=== PATIENT | female | born 1960 | race Hispanic/Latino ===

== ENCOUNTER 2016-12-29 18:49 | Emergency (ER) | payer OTHER ==
[2016-12-29 18:49] VITALS: BMI 27.3
== END 2016-12-29 19:54 | disposition left against medical advice (07) ==
LOC: ED 18:49
DX: Z02.89 Encounter for other administrative examinations (principal); R52 Pain, unspecified

== ENCOUNTER 2017-01-29 16:21 | Emergency (ER) | payer OTHER ==
[2017-01-29 16:38] VITALS: BMI 27.6
[2017-01-29 16:40] VITALS: BP 128/87; PULSE 99; TEMP 98.5
--- NOTE | 2017-01-29 16:54 | ED PDOC ---
Arrival/HPI - General Chief Complaint: Lower Extremity Problem/Injury Time Seen by Provider: 01/29/17 16:38 Historian: Patient - History of Present Illness Narrative History of Present Illness (Text): 01/29/17 16:50 56yo female present with complaint of right knee pain x 4months. States she have not seen a Doctor for the pain. Pain is usually worse at night. She denies trauma, calf pain, SOB, chest pain, any other complaint. Past Medical History - Provider Review Nursing Documentation Reviewed: Yes - Infectious Disease Hx of Infectious Diseases: None - Tetanus Immunization Tetanus Immunization: Unknown - Past Medical History Past Medical History: No Previous - Cardiac Hx Cardiac Disorders: No - Pulmonary Hx Respiratory Disorders: No - Neurological Hx Neurological Disorder: No - HEENT Hx HEENT Disorder: No - Renal Hx Renal Disorder: No - Endocrine/Metabolic Hx Diabetes Mellitus Type 2: Yes (NIDD) - Hematological/Oncological Hx Blood Disorders: No - Integumentary Hx Dermatological Disorder: No - Musculoskeletal/Rheumatological Hx Musculoskeletal Disorders: No - Gastrointestinal Hx Gastrointestinal Disorders: No - Genitourinary/Gynecological Hx Genitourinary Disorders: No - Psychiatric Hx Depression: No Hx Emotional Abuse: No Hx Physical Abuse: No Hx Substance Use: No - Surgical History Hx Cholecystectomy: Yes Hx Hysterectomy: Yes Hx Orthopedic Surgery: Yes (jaime foot surgery; left knee surgery) Other/Comment: HYSTERECTOMY 1997 - Anesthesia Hx Anesthesia: No Hx Anesthesia Reactions: No Hx Malignant Hyperthermia: No - Suicidal Assessment Feels Threatened In Home Enviroment: No Family/Social History - Physician Review Nursing Documentation Reviewed: Yes Family/Social History: Unknown Family HX Smoking Status: Light Smoker < 10 Cigarettes Daily Hx Alcohol Use: No Hx Substance Use: No Hx Substance Use Treatment: No Allergies/Home Meds Allergies/Adverse Reactions: Allergies No Known Allergies Allergy (Verified 01/29/17 16:38) per patient Review of Systems - Physician Review All systems were reviewed & negative as marked: Yes - Review of Systems Constitutional: Normal Eyes: Normal ENT: Normal Respiratory: Normal Cardiovascular: Normal Gastrointestinal: Normal Genitourinary Female: Normal Musculoskeletal: Arthralgias (Right knee pain) Skin: Normal Neurological: Normal Endocrine: Normal Hemo/Lymphatic: Normal Psychiatric: Normal Physical Exam Vital Signs Reviewed: Yes Vital Signs Temp Pulse Resp BP Pulse Ox 01/29/17 16:39 98.5 F 99 H 17 128/87 97 Temperature: Afebrile Blood Pressure: Normal Pulse: Regular Respiratory Rate: Normal Appearance: Positive for: Well-Appearing, Non-Toxic, Comfortable Pain Distress: None Mental Status: Positive for: Alert and Oriented X 3 - Systems Exam Head: Present: Atraumatic, Normocephalic Pupils: Present: PERRL Extroacular Muscles: Present: EOMI Conjunctiva: Present: Normal Mouth: Present: Moist Mucous Membranes Neck: Present: Normal Range of Motion Respiratory/Chest: Present: Clear to Auscultation, Good Air Exchange. No: Respiratory Distress, Accessory Muscle Use Cardiovascular: Present: Regular Rate and Rhythm, Normal S1, S2. No: Murmurs Abdomen: Present: Normal Bowel Sounds. No: Tenderness, Distention, Peritoneal Signs Back: Present: Normal Inspection Upper Extremity: Present: Normal Inspection. No: Cyanosis, Edema Lower Extremity: Present: NORMAL PULSES, Normal ROM, Tenderness (Over inferior right knee and posterior knee), Neurovascularly Intact. No: Edema, CALF TENDERNESS, Saba's Sign, Swelling, Erythema, Deformity, Temperature Abnormalties Neurological: Present: GCS=15, CN II-XII Intact, Speech Normal Skin: Present: Warm, Dry, Normal Color. No: Rashes Psychiatric: Present: Alert, Oriented x 3, Normal Insight, Normal Concentration Medical Decision Making ED Course and Treatment: 01/29/17 17:48 Right knee xray - Moderate effusion. No acute finding Right Doppler US - Negative DVT Result was DW the pt. Clint wrap applied. Advised to keep knee elevated. Referred to ortho. - RAD Interpretation Radiology Orders: 01/29/17 16:49 KNEE W PATELLA RIGHT 3 VIEW [RAD] Stat DUPLEX LOWER EXTRM VEIN RIGHT [US] Stat - Medication Orders Current Medication Orders: Discontinued Medications Ketorolac Tromethamine (Toradol) 60 mg IM STAT STA Stop: 01/29/17 16:51 Last Admin: 01/29/17 17:40 Dose: 60 mg Disposition/Present on Arrival - Present on Arrival Any Indicators Present on Arrival: No History of DVT/PE: No History of Uncontrolled Diabetes: No Urinary Catheter: No History of Decub. Ulcer: No History Surgical Site Infection Following: Orthopedic Procedures - Disposition Have Diagnosis and Disposition been Completed?: Yes Diagnosis: Knee pain Disposition: HOME/ ROUTINE Disposition Time: 18:40 Patient Plan: Discharge Condition: STABLE Discharge Instructions (ExitCare): Knee Pain (ED) Additional Instructions: Follow up with orthopedist Return to ED for any new symptoms Prescriptions: Naproxen [Naprosyn] 500 mg PO BID #20 tab Referrals: [facility] [Primary Care Provider] - Follow up with primary [facility] [place] [Outside] - Follow up with primary
--- NOTE | 2017-01-29 17:44 | RAD ---
PROCEDURE: Right Knee Radiographs. HISTORY: Pain. No history of recent/ related trauma provided COMPARISON: None. FINDINGS: BONES: No acute fracture. JOINTS: Normal. No osteoarthritis. JOINT EFFUSION: Suprapatellar joint effusion. OTHER FINDINGS: None. IMPRESSION: No acute osseous findings. Moderate suprapatellar joint effusion.
--- NOTE | 2017-01-29 18:29 | US ---
PROCEDURE: Right lower extremity venous US HISTORY: Leg pain and swelling. Evaluate for DVT. PHYSICIAN(S): Tam Qureshi M.D. TECHNIQUE: Duplex sonography and color-flow Doppler with graded compression were used to evaluate the deep venous system of the right lower extremity. FINDINGS: The visualized deep venous system of the right lower extremity is sonographically normal and compressible. Normal waveforms and augmentation are seen. There is no sonographic evidence for deep venous thrombosis in the visualized segments of the right lower extremity. IMPRESSION: 1. No sonographic evidence for deep venous thrombosis in the visualized segments of the right lower extremity.
[2017-01-29 19:18] VITALS: RESP 16; O2SAT 98
== END 2017-01-29 19:18 | disposition home or self-care (01) ==
LOC: ED 16:21
DX: M25.561 Pain in right knee (principal)
CPT/HCPCS: 73562; 93971; 96372; 99283; J1885

== ENCOUNTER 2017-10-20 14:47 | Emergency (ER) | payer MEDICARE, OTHER ==
[2017-10-20 15:03] VITALS: BMI 26.9
[2017-10-20] MEDS ORDERED: Albuterol-Ipratrop 3 mg / 0.5 (3 ml) UD IH STA (16:06)
--- NOTE | 2017-10-20 16:09 | ED PDOC ---
Arrival/HPI - General Chief Complaint: Cough, Cold, Congestion Time Seen by Provider: 10/20/17 16:00 Historian: Patient - History of Present Illness Time/Duration: Other (5 days) Symptom Onset: Gradual Symptom Course: Worsening Severity Level: Moderate Associated Symptoms (Text): 10/20/17 16:07 Patient complains of a five-day history of cough congestion URI wheezing and yellow green sputum production. She is a half pack per day smoker. No chest pain. No dyspnea. No fever or chills. Past Medical History - Infectious Disease Hx of Infectious Diseases: None - Tetanus Immunization Tetanus Immunization: Unknown - Past Medical History Past Medical History: No Previous - Cardiac Hx Cardiac Disorders: No - Pulmonary Hx Respiratory Disorders: No - Neurological Hx Neurological Disorder: No - HEENT Hx HEENT Disorder: No - Renal Hx Renal Disorder: No - Endocrine/Metabolic Hx Diabetes Mellitus Type 2: Yes (NIDD) - Hematological/Oncological Hx Blood Disorders: No - Integumentary Hx Dermatological Disorder: No - Musculoskeletal/Rheumatological Hx Musculoskeletal Disorders: No - Gastrointestinal Hx Gastrointestinal Disorders: No - Genitourinary/Gynecological Hx Genitourinary Disorders: No - Psychiatric Hx Depression: No Hx Emotional Abuse: No Hx Physical Abuse: No Hx Substance Use: No - Surgical History Hx Cholecystectomy: Yes Hx Hysterectomy: Yes Hx Orthopedic Surgery: Yes (jaime foot surgery; left knee surgery) Other/Comment: HYSTERECTOMY 1997 - Anesthesia Hx Anesthesia: No Hx Anesthesia Reactions: No Hx Malignant Hyperthermia: No - Suicidal Assessment Feels Threatened In Home Enviroment: No Family/Social History - Physician Review Nursing Documentation Reviewed: Yes Family/Social History: Unknown Family HX Smoking Status: Light Smoker < 10 Cigarettes Daily Hx Alcohol Use: No Hx Substance Use: No Hx Substance Use Treatment: No Allergies/Home Meds Allergies/Adverse Reactions: Allergies No Known Allergies Allergy (Verified 01/29/17 16:38) per patient Review of Systems - Physician Review All systems were reviewed & negative as marked: Yes - Review of Systems Constitutional: absent: Fatigue, Fevers Respiratory: Cough, Sputum, Wheezing. absent: SOB Cardiovascular: absent: Chest Pain Gastrointestinal: absent: Abdominal Pain, Nausea, Vomiting Neurological: absent: Headache, Dizziness Physical Exam Vital Signs Temp Pulse Resp BP Pulse Ox 10/20/17 16:40 99.7 F H 100 H 16 124/76 96 - Systems Exam Head: Present: Atraumatic, Normocephalic Pupils: Present: PERRL Extroacular Muscles: Present: EOMI Conjunctiva: Present: Normal Ears: Present: NORMAL TM, Normal Canal. No: Erythema Mouth: Present: Moist Mucous Membranes Pharnyx: No: ERYTHEMA, EXUDATE, TONSILS ENLARGED Neck: Present: Normal Range of Motion Respiratory/Chest: Present: Wheezes, Decreased Breath Sounds, Rhonchi. No: Respiratory Distress, Accessory Muscle Use, Rales, Retracting, Tachypneic, Tender to Palpation Cardiovascular: Present: Regular Rate and Rhythm, Normal S1, S2. No: Murmurs Abdomen: Present: Normal Bowel Sounds. No: Tenderness, Distention, Peritoneal Signs, Rebound, Guarding Upper Extremity: Present: Normal Inspection. No: Cyanosis, Edema Lower Extremity: Present: Normal Inspection. No: Edema Neurological: Present: GCS=15, CN II-XII Intact, Speech Normal, Motor Func Grossly Intact Skin: Present: Warm, Dry, Normal Color. No: Rashes Psychiatric: Present: Alert, Oriented x 3, Normal Insight, Normal Concentration Medical Decision Making ED Course and Treatment: 10/20/17 17:16 Symptoms improved after one treatment. - RAD Interpretation Radiology Orders: 10/20/17 16:06 CHEST TWO VIEWS (PA/LAT) [RAD] Stat Chest 2 view shows no infiltrate effusion or cardiomegaly Field Marketing Manager: ED Physician - Medication Orders Current Medication Orders: Discontinued Medications Albuterol/Ipratropium (Duoneb 3 Mg/0.5 Mg (3 Ml) Ud) 3 ml IH ONCE STA Stop: 10/20/17 16:07 Last Admin: 10/20/17 16:20 Dose: 3 ml Disposition/Present on Arrival - Present on Arrival Any Indicators Present on Arrival: No History of DVT/PE: No History of Uncontrolled Diabetes: No Urinary Catheter: No History of Decub. Ulcer: No History Surgical Site Infection Following: Orthopedic Procedures - Disposition Have Diagnosis and Disposition been Completed?: Yes Diagnosis: Asthmatic bronchitis Disposition: HOME/ ROUTINE Disposition Time: 17:16 Patient Plan: Discharge Condition: IMPROVED Discharge Instructions (ExitCare): Acute Bronchitis (ED), Bronchospasm (ED), Wheezing (ED) Additional Instructions: Symptomatic treatment. Tylenol or Advil as directed on bottle as needed. Follow- up in the clinic. Follow up in the ER as needed. Prescriptions: Benzonatate [Tessalon Perles] 100 mg PO Q8 #30 sgl Albuterol HFA [Ventolin HFA 90 mcg/actuation (8 g)] 2 puff IH [id number] #1 puff Azithromycin [Zithromax] 250 mg PO DAILY #6 tab Referrals: PCP,NO [Primary Care Provider] - [place] up [place] [facility] [place] - Follow up with primary Forms: [employer] (Angolan)
[2017-10-20 16:41] VITALS: BP 124/76; PULSE 100; RESP 16; TEMP 99.7; O2SAT 96
--- NOTE | 2017-10-20 17:17 | RAD ---
HISTORY: cough COMPARISON: 09/03/2016 TECHNIQUE: Chest PA and lateral FINDINGS: LUNGS: No active pulmonary disease. PLEURA: No significant pleural effusion identified. No pneumothorax apparent. CARDIOVASCULAR: Normal. OSSEOUS STRUCTURES: No significant abnormalities. VISUALIZED UPPER ABDOMEN: Normal. OTHER FINDINGS: None. IMPRESSION: No active disease.
== END 2017-10-20 17:31 | disposition home or self-care (01) ==
LOC: ED 14:47
DX: J45.909 Unspecified asthma, uncomplicated (principal); E11.9 Type 2 diabetes mellitus without complications; F17.210 Nicotine dependence, cigarettes, uncomplicated

== ENCOUNTER 2018-01-11 16:21 | Emergency (ER) | payer MEDICARE, OTHER ==
--- NOTE | 2018-01-11 17:10 | ED PDOC ---
Arrival/HPI - General Time Seen by Provider: 01/11/18 17:00 Historian: Patient - History of Present Illness Narrative History of Present Illness (Text): 01/11/18 17:10 This 57 yo female presents to this emergency department complaining of tail bone pain x 2 months. Patient admits a old tail bone injury, but she denies recent trauma, or heavy lifting. Patient stated pain is sharp and intermittent. Denies abdominal pain, pelvic pain, n/v, urinary symptoms, skin rash, weakness, paresthesias, GI/ incontinence, saddle anesthesias, urinary retention, rectal pain, or rectal bleeding. Time/Duration: Other (see hpi) Context: Home Past Medical History - Provider Review Nursing Documentation Reviewed: Yes - Infectious Disease Hx of Infectious Diseases: None - Tetanus Immunization Tetanus Immunization: Unknown - Past Medical History Past Medical History: No Previous - Cardiac Hx Cardiac Disorders: No - Pulmonary Hx Respiratory Disorders: No - Neurological Hx Neurological Disorder: No - HEENT Hx HEENT Disorder: No - Renal Hx Renal Disorder: No - Endocrine/Metabolic Hx Diabetes Mellitus Type 2: Yes (NIDD) - Hematological/Oncological Hx Blood Disorders: No - Integumentary Hx Dermatological Disorder: No - Musculoskeletal/Rheumatological Hx Musculoskeletal Disorders: No - Gastrointestinal Hx Gastrointestinal Disorders: No - Genitourinary/Gynecological Hx Genitourinary Disorders: No - Psychiatric Hx Depression: No Hx Emotional Abuse: No Hx Physical Abuse: No Hx Substance Use: No - Surgical History Hx Cholecystectomy: Yes Hx Hysterectomy: Yes Hx Orthopedic Surgery: Yes (jaime foot surgery; left knee surgery) Other/Comment: HYSTERECTOMY 1998 - Anesthesia Hx Anesthesia: No Hx Anesthesia Reactions: No Hx Malignant Hyperthermia: No - Suicidal Assessment Feels Threatened In Home Enviroment: No Family/Social History - Physician Review Nursing Documentation Reviewed: Yes Family/Social History: Other (noncontributory) Smoking Status: Light Smoker < 10 Cigarettes Daily Hx Alcohol Use: No Hx Substance Use: No Hx Substance Use Treatment: No Allergies/Home Meds Allergies/Adverse Reactions: Allergies No Known Allergies Allergy (Verified 01/29/17 16:38) per patient Review of Systems - Review of Systems Constitutional: Normal. absent: Fatigue, Weight Change, Fevers Eyes: Normal ENT: Normal Respiratory: Normal Cardiovascular: Normal Gastrointestinal: Normal Genitourinary Female: Normal Musculoskeletal: Back Pain (see hpi) Skin: Normal. absent: Rash, Pruritis, Skin Lesions, Abscess, Ulcer, Cellulitis Neurological: Normal Endocrine: Normal Hemo/Lymphatic: Normal Psychiatric: Normal Physical Exam Vital Signs Temp Pulse Resp BP Pulse Ox 01/11/18 17:16 98.5 F 94 H 18 136/97 H 97 Temperature: Afebrile Blood Pressure: Normal Pulse: Regular Respiratory Rate: Normal Appearance: Positive for: Well-Appearing, Non-Toxic, Comfortable Pain Distress: None Mental Status: Positive for: Alert and Oriented X 3 - Systems Exam Head: Present: Atraumatic, Normocephalic Pupils: Present: PERRL Extroacular Muscles: Present: EOMI Conjunctiva: Present: Normal Rectal: Present: Normal Rectal Tone. No: Occult Blood, Rectal Tenderness, Gross Blood, Melena, Hemorrhoids, Fissures, Nodule/Mass/Lesions Back: Present: Normal Inspection, Other (Mild coccyx tenderness. No erythema, or abscess. ). No: CVA Tenderness, Midline Tenderness, Paraspinal Tenderness, Pain with Leg Raise Upper Extremity: Present: Normal Inspection, Normal ROM Lower Extremity: Present: Normal Inspection, Normal ROM Neurological: Present: GCS=15, CN II-XII Intact, Speech Normal, Motor Func Grossly Intact, Normal Sensory Function, Normal Cerebellar Funct, Gait Normal, Memory Normal Skin: Present: Warm, Dry, Normal Color. No: Rashes Psychiatric: Present: Alert, Oriented x 3, Normal Insight, Normal Concentration Medical Decision Making ED Course and Treatment: 01/11/18 18:50 Re-evaluation. Patient feels better. Discussed results and plan with patient who expresses understanding. All questions answered and there is agreement with the plan to discharge home with instructions. Patient stable for discharge. Return if symptoms persist or worsen. Re-evaluation Time: 18:50 Reassessment Condition: Re-examined, Improved - RAD Interpretation Radiology Orders: 01/11/18 17:11 SACRUM &/or COCCYX (MIN 2VW) [RAD] Stat 01/11/18 17:13 LS SPINE WITH OBL > 18 YRS OLD [RAD] Stat - Medication Orders Current Medication Orders: Discontinued Medications Ketorolac Tromethamine (Toradol) 15 mg IM STAT STA Stop: 01/11/18 17:11 Last Admin: 01/11/18 17:56 Dose: 15 mg MAR Pain Assessment Document 01/11/18 17:56 HI (Rec: 01/11/18 17:56 HI [id number]) Pain Reassessment Is this a pain reassessment? No IM Administration Charges Document 01/11/18 17:56 HI (Rec: 01/11/18 17:56 HI [id number]) Injection Site MAR Injection Site Left Deltoid Charges for Administration # of IM Administrations 1 Disposition/Present on Arrival - Present on Arrival Any Indicators Present on Arrival: No History of DVT/PE: No History of Uncontrolled Diabetes: No Urinary Catheter: No History Surgical Site Infection Following: Orthopedic Procedures - Disposition Have Diagnosis and Disposition been Completed?: Yes Diagnosis: Back pain Disposition: HOME/ ROUTINE Disposition Time: 18:50 Patient Plan: Discharge Patient Problems: Current Active Problems Problem Status Onset Back pain Acute Discharge Instructions (ExitCare): Low Back Pain (DC) Additional Instructions: Call private doctor for follow up visit in 1-2 days. Take medication as instructed. Return to emergency if symptoms worsen. Prescriptions: Ibuprofen [Motrin] 600 mg PO Q8 PRN #20 tab PRN Reason: Pain, Severe (8-10) Referrals: PCP,NO [Primary Care Provider] - Follow up with primary [facility] [Outside] - Follow up with primary [facility] [Outside] - Follow up with primary
[2018-01-11 17:11] VITALS: BMI 26.6
[2018-01-11 17:18] VITALS: RESP 18; TEMP 98.5
[2018-01-11 23:59] VITALS: BP 135/78; PULSE 82; O2SAT 99
--- NOTE | 2018-01-12 08:30 | RAD ---
PROCEDURE: Lumbar spine dated 01/11/2018 HISTORY: Pain. COMPARISON: Correlation made with concurrent radiographs of the sacrum arlene. Comparison also made with CT scan abdomen pelvis 06/22/2012 which image the lumbar spine in 3 planes. FINDINGS: BONES: Mild chronic anterior stature loss of the L1 and to a lesser degree T11, T10 and L3 segments. Remaining vertebral bodies otherwise exhibit relatively normal stature. The the DISC SPACES: Varying degrees of minor disc space narrowing with endplate eburnation. There are multilevel anterolateral osteophytes the largest located at the L2-L3 levels. OTHER FINDINGS: Metallic clips right upper quadrant of the abdomen consistent with prior cholecystectomy. IMPRESSION: Mild chronic anterior and osteophyte formation most notably affecting the L1 segment. Multilevel degenerative spondylosis.
--- NOTE | 2018-01-12 08:39 | RAD ---
PROCEDURE: Radiographs of the Sacrum and Coccyx HISTORY: Pain COMPARISON: None available. TECHNIQUE: Frontal and lateral views of the sacrum and coccyx FINDINGS: BONES: No definitive evidence of acute displaced fracture nor dislocation. Unremarkable. No fracture or focal lesion. SACROILIAC JOINTS: Unremarkable. OTHER FINDINGS: None. IMPRESSION: Unremarkable radiographs of the sacrum and coccyx. No definitive evidence of acute displaced fracture nor dislocation. Note however if symptoms persist or occult fracture suspected clinically recommend followup CT scan of the sacrum/coccyx as fractures in these locations are often times dismissed on plain film radiographs
== END 2018-01-11 19:00 | disposition home or self-care (01) ==
LOC: ED 16:21
DX: M54.9 Dorsalgia, unspecified (principal); F17.210 Nicotine dependence, cigarettes, uncomplicated; E11.9 Type 2 diabetes mellitus without complications
CPT/HCPCS: 72110; 72220; 96372; 99283; J1885

== ENCOUNTER 2018-03-09 13:05 | Emergency (ER) | payer OTHER ==
[2018-03-09 13:27] VITALS: BMI 29.1
[2018-03-09 13:29] VITALS: PULSE 87; RESP 18; TEMP 98.5; O2SAT 98
--- NOTE | 2018-03-09 14:07 | ED PDOC ---
Arrival/HPI - General Chief Complaint: Lower Extremity Problem/Injury Time Seen by Provider: 03/09/18 13:38 Historian: Patient - History of Present Illness Narrative History of Present Illness (Text): 03/09/18 14:07 This 57 yo female presents to this ED c/o right knee pain x 2 months. Patient stated knee pain has been presents in the past for about a year. She also c/o right hand pain x 6 months. She is requesting x-rays. Patient denies fall, dizziness, erythema, skin rash, ecchymosis, weakness, paresthesias, or abnormal gait. Time/Duration: Other (see hpi) Context: Home Past Medical History - Provider Review Nursing Documentation Reviewed: Yes - Infectious Disease Hx of Infectious Diseases: None - Tetanus Immunization Tetanus Immunization: Unknown - Reproductive Menopause: Yes - Past Medical History Past Medical History: No Previous - Cardiac Hx Cardiac Disorders: No - Pulmonary Hx Respiratory Disorders: Yes Hx Bronchitis: Yes - Neurological Hx Neurological Disorder: No - HEENT Hx HEENT Disorder: No - Renal Hx Renal Disorder: No - Endocrine/Metabolic Hx Endocrine Disorders: Yes Hx Diabetes Mellitus Type 2: Yes (NIDD) - Hematological/Oncological Hx Blood Disorders: No - Integumentary Hx Dermatological Disorder: No - Musculoskeletal/Rheumatological Hx Musculoskeletal Disorders: No - Gastrointestinal Hx Gastrointestinal Disorders: No - Genitourinary/Gynecological Hx Genitourinary Disorders: No - Psychiatric Hx Psychophysiologic Disorder: No Hx Substance Use: No - Surgical History Hx Cholecystectomy: Yes Hx Hysterectomy: Yes Hx Orthopedic Surgery: Yes (jaime foot surgery; left knee surgery) Other/Comment: HYSTERECTOMY 1998 - Anesthesia Hx Anesthesia: No Hx Anesthesia Reactions: No Hx Malignant Hyperthermia: No - Suicidal Assessment Feels Threatened In Home Enviroment: No Family/Social History - Physician Review Nursing Documentation Reviewed: Yes Family/Social History: Other (noncontributory) Smoking Status: Light Smoker < 10 Cigarettes Daily Hx Alcohol Use: No Hx Substance Use: No Hx Substance Use Treatment: No Allergies/Home Meds Allergies/Adverse Reactions: Allergies No Known Allergies Allergy (Verified 03/09/18 13:27) per patient Review of Systems - Review of Systems Constitutional: Normal. absent: Fatigue, Weight Change, Fevers Eyes: Normal ENT: Normal Respiratory: Normal Cardiovascular: Normal Gastrointestinal: Normal Genitourinary Female: Normal Musculoskeletal: Other ((+) right knee pain (+) right hand pain) Skin: Normal Neurological: Normal Endocrine: Normal Hemo/Lymphatic: Normal Psychiatric: Normal Physical Exam Vital Signs Temp Pulse Resp BP Pulse Ox 03/09/18 13:28 98.5 F 87 18 130/85 98 Temperature: Afebrile Blood Pressure: Normal Pulse: Regular Respiratory Rate: Normal Appearance: Positive for: Well-Appearing, Non-Toxic, Comfortable Pain Distress: None Mental Status: Positive for: Alert and Oriented X 3 Finger Stick Blood Glucose: 239 - Systems Exam Head: Present: Atraumatic, Normocephalic Pupils: Present: PERRL Extroacular Muscles: Present: EOMI Conjunctiva: Present: Normal Mouth: Present: Moist Mucous Membranes Neck: Present: Normal Range of Motion Respiratory/Chest: Present: Clear to Auscultation, Good Air Exchange. No: Respiratory Distress, Accessory Muscle Use Cardiovascular: Present: Regular Rate and Rhythm, Normal S1, S2. No: Murmurs Abdomen: No: Tenderness, Distention, Peritoneal Signs Back: Present: Normal Inspection Upper Extremity: Present: Normal Inspection, Normal ROM, NORMAL PULSES, Neurovascularly Intact, Capillary Refill < 2s. No: Cyanosis, Edema, Tenderness , Swelling, Erythema, Temperature Abnormalties Lower Extremity: Present: NORMAL PULSES, Normal ROM, Neurovascularly Intact, Capillary Refill < 2 s. No: Edema, Tenderness, Swelling, Erythema, Temperature Abnormalties Neurological: Present: GCS=15, CN II-XII Intact, Speech Normal, Motor Func Grossly Intact, Normal Sensory Function, Normal Cerebellar Funct, Gait Normal Skin: Present: Warm, Dry, Normal Color. No: Rashes Psychiatric: Present: Alert, Oriented x 3, Normal Insight, Normal Concentration Medical Decision Making ED Course and Treatment: 03/09/18 15:36 Re-evaluation. Patient feels better. Discussed results and plan with patient who expresses understanding. All questions answered and there is agreement with the plan to discharge home with instructions. Patient stable for discharge. Return if symptoms persist or worsen. Re-evaluation Time: 15:37 Reassessment Condition: Re-examined, Improved - Lab Interpretations Lab Results: Lab Results 03/09/18 13:35: POC Glucose (mg/dL) 239 H - RAD Interpretation Narrative RAD Interpretations (Text): 03/09/18 15:36 PROCEDURE: Right Hand Radiographs. HISTORY: pain COMPARISON: None. FINDINGS: BONES: Normal. No fracture. JOINTS: Normal. No osteoarthritic changes. SOFT TISSUES: Normal. OTHER FINDINGS: None. IMPRESSION: Normal right hand radiographs. 03/09/18 15:36 PROCEDURE: Right Knee Radiographs. HISTORY: pain COMPARISON: None. FINDINGS: BONES: Normal. No fracture. JOINTS: Normal. No osteoarthritis. JOINT EFFUSION: None. OTHER FINDINGS: None. IMPRESSION: Normal radiographs of the right knee. Radiology Orders: 03/09/18 14:11 HAND RIGHT 3 VIEWS [RAD] Stat KNEE RIGHT 2 VIEWS (AP & LAT) [RAD] Stat - Medication Orders Current Medication Orders: Discontinued Medications Famotidine (Pepcid) 40 mg PO STAT STA Stop: 03/09/18 14:20 Last Admin: 03/09/18 14:26 Dose: 40 mg Ibuprofen (Motrin Tab) 400 mg PO STAT STA Stop: 03/09/18 14:20 Last Admin: 03/09/18 14:26 Dose: 400 mg MAR Pain/Vitals Document 03/09/18 14:26 [place] (Rec: 03/09/18 14:26 A[place]IDE [id number]) Pain Reassessment Is This A Pain ReAssessment? No Sleep Is patient sleeping during reassessment? No Presence of Pain Presence of Pain Yes Disposition/Present on Arrival - Present on Arrival Any Indicators Present on Arrival: No History of DVT/PE: No History of Uncontrolled Diabetes: No Urinary Catheter: No History of Decub. Ulcer: No History Surgical Site Infection Following: Orthopedic Procedures - Disposition Have Diagnosis and Disposition been Completed?: Yes Diagnosis: Knee pain, right, Hand pain, right Disposition: HOME/ ROUTINE Disposition Time: 16:21 Patient Plan: Discharge Condition: GOOD Discharge Instructions (ExitCare): Chronic Knee Pain (DC) Additional Instructions: Call private doctor for follow up visit in 1-2 days. Take medication as instructed. Return to emergency if symptoms worsen. Remove taylor bandage at bedtime. Prescriptions: Famotidine [Pepcid] 40 mg PO DAILY #10 tablet Ibuprofen [Motrin] 400 mg PO Q8H PRN #20 tab PRN Reason: Pain, Severe (8-10) Referrals: Monica Qureshi [facility] [Primary Care Provider] - Follow up with primary [facility] [Outside] - Follow up with primary [facility] [place] [Outside] - Follow up with primary Forms: [employer] (Latvian)
--- NOTE | 2018-03-09 15:22 | RAD ---
PROCEDURE: Right Knee Radiographs. HISTORY: pain COMPARISON: None. FINDINGS: BONES: Normal. No fracture. JOINTS: Normal. No osteoarthritis. JOINT EFFUSION: None. OTHER FINDINGS: None. IMPRESSION: Normal radiographs of the right knee.
--- NOTE | 2018-03-09 15:22 | RAD ---
PROCEDURE: Right Hand Radiographs. HISTORY: pain COMPARISON: None. FINDINGS: BONES: Normal. No fracture. JOINTS: Normal. No osteoarthritic changes. SOFT TISSUES: Normal. OTHER FINDINGS: None. IMPRESSION: Normal right hand radiographs.
[2018-03-09 17:17] VITALS: BP 128/86
== END 2018-03-09 16:45 | disposition home or self-care (01) ==
LOC: ED 13:05
DX: M25.561 Pain in right knee (principal); M79.641 Pain in right hand; E11.9 Type 2 diabetes mellitus without complications; F17.210 Nicotine dependence, cigarettes, uncomplicated

== ENCOUNTER 2018-04-20 17:22 | Emergency (ER) | payer OTHER ==
[2018-04-20 17:22] VITALS: BMI 29.1
[2018-04-20 17:45] VITALS: BP 148/82; PULSE 111; RESP 18; TEMP 99.1; O2SAT 98
[2018-04-20] MEDS ORDERED: Alum-Mag Hydrox-Simethicone Susp (30 mL) PO STA (18:10)
--- NOTE | 2018-04-20 18:18 | ED PDOC ---
Arrival/HPI - General Historian: Patient - History of Present Illness Time/Duration: > week Symptom Course: Intermittent Quality: Other (soreness) Severity Level: 5, Mild Activities at Onset: Rest <Kendy Holloway - Last Filed: 04/20/18 18:23> <ShiraYusuf Brad - Last Filed: 04/20/18 18:50> <Tucker Richardson - Last Filed: 04/20/18 23:23> - General Chief Complaint: Abdominal Pain Time Seen by Provider: 04/20/18 17:40 - History of Present Illness Narrative History of Present Illness (Text): 04/20/18 18:15 Patient is a 57 year old female with past medical history of gastritis, diabetes who presents the emergency department for abdominal soreness that started last week. Patient states that abdominal soreness radiates to the back. It is constant but waxes and wanes, worse with movement. She took aleeve with some relief in symptoms. States that soreness is different from gastritis symptoms. Soreness is associated with body aches and decreased appetite. Patient also reports having one episode of loose stool today and a fever of 104 yesterday. Denies nausea/vomiting headaches, dizziness, cp, palpitations, sob, urinary symptoms, hematochezia, melena. (Kendy Holloway) Past Medical History - Provider Review Nursing Documentation Reviewed: Yes - Infectious Disease Hx of Infectious Diseases: None - Tetanus Immunization Tetanus Immunization: Unknown - Past Medical History Past Medical History: No Previous - Cardiac Hx Cardiac Disorders: No - Pulmonary Hx Respiratory Disorders: Yes Hx Bronchitis: Yes - Neurological Hx Neurological Disorder: No - HEENT Hx HEENT Disorder: No - Renal Hx Renal Disorder: No - Endocrine/Metabolic Hx Endocrine Disorders: Yes Hx Diabetes Mellitus Type 2: Yes (NIDD) - Hematological/Oncological Hx Blood Disorders: No - Integumentary Hx Dermatological Disorder: No - Musculoskeletal/Rheumatological Hx Musculoskeletal Disorders: No - Gastrointestinal Hx Gastrointestinal Disorders: Yes Hx Gastritis: Yes - Genitourinary/Gynecological Hx Genitourinary Disorders: No - Psychiatric Hx Psychophysiologic Disorder: No Hx Substance Use: No - Surgical History Hx Cholecystectomy: Yes Hx Hysterectomy: Yes Hx Orthopedic Surgery: Yes (jaime foot surgery; left knee surgery) Other/Comment: HYSTERECTOMY 1998 - Anesthesia Hx Anesthesia: Yes Hx Anesthesia Reactions: No Hx Malignant Hyperthermia: No - Suicidal Assessment Feels Threatened In Home Enviroment: No <Kendy Holloway - Last Filed: 04/20/18 18:23> Family/Social History - Physician Review Nursing Documentation Reviewed: Yes Family/Social History: Diabetes, Hypertension, Neoplasm/Cancer (Ovarian) Smoking Status: Light Smoker < 10 Cigarettes Daily Hx Alcohol Use: No Hx Substance Use: No Hx Substance Use Treatment: No <Kendy Holloway - Last Filed: 04/20/18 18:23> Allergies/Home Meds <Kendy Holloway - Last Filed: 04/20/18 18:23> <ShiraYusuf Brad - Last Filed: 04/20/18 18:50> <Tucker Richardson - Last Filed: 04/20/18 23:23> Allergies/Adverse Reactions: Allergies No Known Allergies Allergy (Verified 03/09/18 13:27) per patient Home Medications: Home Meds Medication Instructions Recorded Confirmed Calcium Carbonate [Calcium] 600 mg PO BID 04/20/18 04/20/18 Ergocalciferol [Drisdol 50,000 1 cap PO Q7D 04/20/18 04/20/18 Intl Units Cap] Review of Systems - Review of Systems Constitutional: Fevers. absent: Normal Eyes: absent: Vision Changes ENT: absent: Hearing Changes Respiratory: Normal. absent: SOB, Cough, Wheezing Cardiovascular: Normal. absent: Chest Pain, Palpitations Gastrointestinal: Abdominal Pain, Diarrhea, Appetite Changes. absent: Constipation, Nausea, Vomiting, Hematochezia Genitourinary Female: absent: Dysuria, Hematuria Skin: absent: Rash Neurological: absent: Headache, Dizziness <Kendy Holloway - Last Filed: 04/20/18 18:23> Physical Exam Temperature: Afebrile Pulse: Tachycardic Appearance: Positive for: Well-Appearing, Non-Toxic Pain Distress: Mild Mental Status: Positive for: Alert and Oriented X 3 - Systems Exam Head: Present: Atraumatic, Normocephalic Pupils: Present: PERRL Extroacular Muscles: Present: EOMI Conjunctiva: Present: Normal Mouth: Present: Moist Mucous Membranes Neck: Present: Normal Range of Motion Respiratory/Chest: Present: Clear to Auscultation, Good Air Exchange. No: Respiratory Distress Cardiovascular: Present: Normal S1, S2, Tachycardic Abdomen: Present: Tenderness (Epigastric tenderness), Normal Bowel Sounds. No: Distention, Peritoneal Signs, Rebound, Guarding Upper Extremity: Present: Normal Inspection Lower Extremity: Present: Normal Inspection, NORMAL PULSES. No: CALF TENDERNESS Neurological: Present: CN II-XII Intact Skin: Present: Warm, Dry, Normal Color. No: Rashes <Kendy Holloway - Last Filed: 04/20/18 18:23> <Yusuf Silva - Last Filed: 04/20/18 18:50> <Tucker Richardson - Last Filed: 04/20/18 23:23> Vital Signs Temp Pulse Resp BP Pulse Ox 04/20/18 17:45 99.1 F 111 H 18 148/82 98 Medical Decision Making - EKG Interpretation Interpreted by ED Physician: Yes Type: 12 lead EKG <Kendy Holloway - Last Filed: 04/20/18 18:23> <Yusuf Silva - Last Filed: 04/20/18 18:50> <Tucker Richardson - Last Filed: 04/20/18 23:23> ED Course and Treatment: 04/20/18 18:21 Patient is a 57 year old female with past medical history of gastritis that presents with one week history of abdominal soreness. -Labs -Pepcid/Maalox -CT abd/pelvis IV/PO contrast (Kendy Holloway) Seen and examined with resident. 57 y/o F p/w abdominal pain radiating to back with low grade fever here, 104 at home, and tachycardic. On exam, epigastric tenderness without guarding. Signed out to ED night team. (Yusuf Silva) - Lab Interpretations Lab Results: 04/20/18 18:40 04/20/18 18:40 Lab Results 04/20/18 18:40: Urine Color Yellow, Urine Appearance Clear, Urine pH 6.0, Ur Specific [place] 1.025, Urine Protein Negative, Urine Glucose (UA) >=1000, Urine Ketones Negative, Urine Blood Negative, Urine Nitrate Negative, Urine Bilirubin Negative, Urine Urobilinogen 0.2, Ur Leukocyte Esterase Negative, Urine HCG, Qual Negative 04/20/18 18:40: WBC 2.3 L* D, RBC 4.63, Hgb 14.3, Hct 41.2, MCV 89.0, MCH 30.9, MCHC 34.7, RDW 12.2, Plt Count 92 L, MPV 10.4, Gran % 56.4, Lymph % (Auto) 29.1 , [place] % (Auto) 12.8 H, Eos % (Auto) 1.3 L, Baso % (Auto) 0.4, Gran # 1.32 L, Lymph # (Auto) 0.7 L, [place] # (Auto) 0.3, Eos # (Auto) 0.0, Baso # (Auto) 0.01 04/20/18 18:40: Sodium 142, Potassium 3.8, Chloride 102, Carbon Dioxide 28, Anion Gap 15, BUN 13, Creatinine 0.6 L, Est GFR ( Amer) > 60, Est GFR ( Non-Af Amer) > 60, Random Glucose 236 H, Calcium 9.2, Total Bilirubin 0.5, AST 100 H D, ALT 111 H, Alkaline Phosphatase 76, Total Protein 7.3, Albumin 4.1, Globulin 3.2, Albumin/Globulin Ratio 1.3, Lipase 173 - RAD Interpretation Radiology Orders: 04/20/18 18:11 ABD PELVIS PO & IV CONTRAST [CT] Stat - EKG Interpretation EKG Interpretation (Text): 04/20/18 18:23 EKG: Sinus tachycardia, 106 bpm, normal axis, no ST-T wave changes (Kendy Holloway) - Medication Orders Current Medication Orders: Discontinued Medications Al Hydrox/Mg Hydrox/Simethicone (Maalox Plus 30 Ml) 30 ml PO STAT STA Stop: 04/20/18 18:11 Last Admin: 04/20/18 18:40 Dose: 30 ml Famotidine (Pepcid) 20 mg IVP STAT STA Stop: 04/20/18 18:11 Last Admin: 04/20/18 18:40 Dose: 20 mg IVP Administration Document 04/20/18 18:40 [place] (Rec: 04/20/18 18:49 [email or web address]) Charges for Administration # of IVP Administrations 1 Disposition/Present on Arrival - Present on Arrival History of DVT/PE: No History of Uncontrolled Diabetes: No Urinary Catheter: No History of Decub. Ulcer: No History Surgical Site Infection Following: Orthopedic Procedures <Kendy Holloway - Last Filed: 04/20/18 18:23> <Yusuf Silva - Last Filed: 04/20/18 18:50> - Present on Arrival Any Indicators Present on Arrival: No History of DVT/PE: No - Disposition Have Diagnosis and Disposition been Completed?: Yes Disposition Time: 23:22 <Tucker Richardson - Last Filed: 04/20/18 23:23> - Disposition Diagnosis: Leukopenia, Abdominal pain, Elevated transaminase level Disposition: AGAINST MEDICAL ADVICE Condition: STABLE Forms: [employer] (Faroese)
[2018-04-20] MEDS ORDERED: Iohexol 240 (50 ml) ONE (18:32)
[2018-04-20] MEDS ORDERED: Iohexol 350 MG/100 ML VIAL ONE (18:32)
[2018-04-20 18:56] LABS: BASO # 0.01 K/mm3 (0.0-2.0); BASO % 0.4 % (0.0-3.0); EOS % 1.3 % (1.5-5.0); GRAN # 1.32 (1.4-6.5); GRAN % 56.4 % (50.0-68.0); HEMOGLOBIN 14.3 g/dL (12.0-16.0); LYMPH # 0.7 (1.2-3.4); LYMPH % 29.1 % (22.0-35.0); MEAN CORPUSCULAR HEMOGLOBIN 30.9 pg (25.0-35.0); MEAN CORPUSCULAR HGB CONC 34.7 g/dl (31.0-37.0); MEAN PLATELET VOLUME 10.4 fl (7.0-11.0); MONO # 0.3 (0.1-0.6); MONO % 12.8 % (1.0-6.0); RBC 4.63 10^6/uL (3.5-6.1); RED CELL DISTRIBUTION WIDTH 12.2 % (11.5-14.5)
[2018-04-20 18:57] LABS: URINE BILIRUBIN NEGATIVE (NEGATIVE); URINE BLOOD NEGATIVE (NEGATIVE); URINE GLUCOSE (UA) >=1000 mg/dL (NEGATIVE); URINE LEUKOCYTE ESTERASE NEGATIVE Leu/uL (NEGATIVE); URINE PROTEIN NEGATIVE mg/dL (<30 mg/dL); URINE UROBILINOGEN 0.2 E.U./dL (<1 E.U./dL)
[2018-04-20 19:00] LABS: ALB/GLOB RATIO 1.3 (1.1-1.8); ALBUMIN 4.1 g/dL (3.0-4.8); ALT/SGPT 111 U/L (7-56); AST/SGOT 100 U/L (14-36); BLOOD UREA NITROGEN 13 mg/dL (7-21); CALCIUM 9.2 mg/dL (8.4-10.5); GFR AFRICAN-AMERICAN > 60; GFR NON-AFRICAN AMERICAN > 60; LIPASE 173 U/L (23-300); WHITE BLOOD COUNT 2.3 10^3/ul (4.5-11.0)
[2018-04-20 19:01] LABS: HCG,QUALITATIVE URINE NEGATIVE (NEGATIVE); URINE APPEARANCE CLEAR (CLEAR); URINE COLOR YELLOW (YELLOW)
--- NOTE | 2018-04-20 19:11 | ED PDOC ---
Physical Exam Vital Signs Reviewed: Yes Vital Signs Temp Pulse Resp BP Pulse Ox 04/20/18 17:45 99.1 F 111 H 18 148/82 98 Temperature: Afebrile Blood Pressure: Normal Pulse: Tachycardic Respiratory Rate: Normal Appearance: Positive for: Well-Appearing, Non-Toxic, Comfortable Pain Distress: None Mental Status: Positive for: Alert and Oriented X 3 - Systems Exam Head: Present: Atraumatic, Normocephalic Pupils: Present: PERRL Extroacular Muscles: Present: EOMI Conjunctiva: Present: Normal Mouth: Present: Moist Mucous Membranes Neck: Present: Normal Range of Motion Respiratory/Chest: Present: Clear to Auscultation, Good Air Exchange. No: Respiratory Distress, Accessory Muscle Use Cardiovascular: Present: Regular Rate and Rhythm, Normal S1, S2. No: Murmurs Abdomen: Present: Tenderness (Epigastric tenderness). No: Distention, Peritoneal Signs, Rebound, Guarding Back: Present: Normal Inspection Upper Extremity: Present: Normal Inspection. No: Cyanosis, Edema Lower Extremity: Present: Normal Inspection. No: Edema Neurological: Present: GCS=15, CN II-XII Intact, Speech Normal Skin: Present: Warm, Dry, Normal Color. No: Rashes Psychiatric: Present: Alert, Oriented x 3, Normal Insight, Normal Concentration Medical Decision Making ED Course and Treatment: 04/20/18 19:08 Case endorsed to me by Dr. Silva, pending CT results. CT Abdomen and Pelvis With Intravenous Contrast Dictated and Authenticated by: Ashley Regalado MD 04/20/2018 10:10 PM Eastern Time ([place] & [place]) IMPRESSION: No acute findings. 04/20/18 23:Patient states that she prefers to follow up outpatient/clinic. Patient wants to sign out against medical advice. Leaving Against Medical Advice (AMA): The patient is choosing to leave against medical advice. I have personally explained to the patient that choosing to do so may result in permanent bodily harm or . I have discussed at great length that without further evaluation and monitoring there may be unforeseen circumstances and/or deterioration causing permanent bodily harm or as a result of their choice. The patient is alert, oriented, and shows the mental capacity to make clear decisions regarding the patients health care at this time. The patient continues to wish to leave against medical advice. In light of the patients decision to leave against medical advice, follow-up has been arranged and the patient is aware of the importance to following up as instructed. The patient has been advised that they should return to the emergency room immediately if they change their mind at any time, or if their condition begins to change or worsen in any way. - Lab Interpretations Lab Results: 04/20/18 18:40 04/20/18 18:40 Lab Results 04/20/18 18:40: Urine Color Yellow, Urine Appearance Clear, Urine pH 6.0, Ur Specific [place] 1.025, Urine Protein Negative, Urine Glucose (UA) >=1000, Urine Ketones Negative, Urine Blood Negative, Urine Nitrate Negative, Urine Bilirubin Negative, Urine Urobilinogen 0.2, Ur Leukocyte Esterase Negative, Urine HCG, Qual Negative 04/20/18 18:40: WBC 2.3 L* D, RBC 4.63, Hgb 14.3, Hct 41.2, MCV 89.0, MCH 30.9, MCHC 34.7, RDW 12.2, Plt Count 92 L, MPV 10.4, Gran % 56.4, Lymph % (Auto) 29.1 , [place] % (Auto) 12.8 H, Eos % (Auto) 1.3 L, Baso % (Auto) 0.4, Gran # 1.32 L, Lymph # (Auto) 0.7 L, [place] # (Auto) 0.3, Eos # (Auto) 0.0, Baso # (Auto) 0.01 04/20/18 18:40: Sodium 142, Potassium 3.8, Chloride 102, Carbon Dioxide 28, Anion Gap 15, BUN 13, Creatinine 0.6 L, Est GFR ( Amer) > 60, Est GFR ( Non-Af Amer) > 60, Random Glucose 236 H, Calcium 9.2, Total Bilirubin 0.5, AST 100 H D, ALT 111 H, Alkaline Phosphatase 76, Total Protein 7.3, Albumin 4.1, Globulin 3.2, Albumin/Globulin Ratio 1.3, Lipase 173 - RAD Interpretation Radiology Orders: 04/20/18 18:11 ABD PELVIS PO & IV CONTRAST [CT] Stat - Medication Orders Current Medication Orders: Discontinued Medications Al Hydrox/Mg Hydrox/Simethicone (Maalox Plus 30 Ml) 30 ml PO STAT STA Stop: 07/24/18 18:11 Last Admin: 04/20/18 18:40 Dose: 30 ml Famotidine (Pepcid) 20 mg IVP STAT STA Stop: 04/20/18 18:11 Last Admin: 04/20/18 18:40 Dose: 20 mg IVP Administration Document 04/20/18 18:40 [place] (Rec: 04/20/18 18:49 [place] [email or web address] Charges for Administration # of IVP Administrations 1 - Scribe Statement The provider has reviewed the documentation as recorded by the Scribe Cyn Zazueta All medical record entries made by the Scribe were at my direction and personally dictated by me. I have reviewed the chart and agree that the record accurately reflects my personal performance of the history, physical exam, medical decision making, and the department course for this patient. I have also personally directed, reviewed, and agree with the discharge instructions and disposition. Disposition/Present on Arrival - Present on Arrival Any Indicators Present on Arrival: No History of DVT/PE: No History of Uncontrolled Diabetes: No Urinary Catheter: No History of Decub. Ulcer: No History Surgical Site Infection Following: Orthopedic Procedures - Disposition Have Diagnosis and Disposition been Completed?: Yes Diagnosis: Leukopenia, Abdominal pain, Elevated transaminase level Disposition: AGAINST MEDICAL ADVICE Disposition Time: 23:30 Condition: STABLE Forms: [employer] (Kinyarwanda)
--- NOTE | 2018-04-20 20:15 | CARD ---
APPROVED REPORT Date of service: 04/20/2018 EKG Measurement Heart [id number] <Conclusion> Sinus tachycardia Otherwise normal ECG
--- NOTE | 2018-04-21 08:34 | CT ---
Date of service: 04/20/2018 PROCEDURE: CT Abdomen and Pelvis with contrast HISTORY: Fever, abdominal pain. Relevant surgical history: Hysterectomy, cholecystectomy. COMPARISON: None. TECHNIQUE: Contrast dose: 100 cc Omnipaque 300 Radiation dose: Total exam DLP = 591.50 mGy-cm. This CT exam was performed using one or more of the following dose reduction techniques: Automated exposure control, adjustment of the mA and/or kV according to patient size, and/or use of iterative reconstruction technique. FINDINGS: LOWER THORAX: Unremarkable. LIVER: Hepatic steatosis. No focal masses. No intrahepatic bile duct dilatation or perihepatic ascites. Hepatomegaly. GALLBLADDER AND BILE DUCTS: Status post cholecystectomy. No abnormality is seen in the gallbladder fossa. PANCREAS: Unremarkable. No gross lesion or ductal dilatation. SPLEEN: Unremarkable. ADRENALS: Unremarkable. No mass. KIDNEYS AND URETERS: Unremarkable. No hydronephrosis. No solid mass. VASCULATURE: Unremarkable. No aortic aneurysm. BOWEL: Unremarkable. No obstruction. No gross mural thickening. APPENDIX: Normal appendix. PERITONEUM: Unremarkable. No free fluid. No free air. LYMPH NODES: Unremarkable. No enlarged lymph nodes. BLADDER: Unremarkable. REPRODUCTIVE: Prior hysterectomy. BONES: No acute fracture. OTHER FINDINGS: None. IMPRESSION: No significant or acute findings to account for/ related to the clinical presentation. Additional benign and/or incidental findings described above. Concordant results (preliminary interpretation) provided by [employer]. Procedure Completed: 21:13 Preliminary ([employer]) Report: Dictated and Authenticated: 22:10 Final Interpretation: 08:32. April 21, 2018.
== END 2018-04-20 23:24 | disposition left against medical advice (07) ==
LOC: ED 17:22
DX: D72.819 Decreased white blood cell count, unspecified (principal); R74.0 Nonspecific elevation of levels of transaminase and lactic acid dehydrogenase [LDH]; R10.9 Unspecified abdominal pain; E11.9 Type 2 diabetes mellitus without complications; F17.210 Nicotine dependence, cigarettes, uncomplicated
CPT/HCPCS: 74177; 80053; 81003; 83690; 84703; 85025; 87086; 93005; 96374; 99284; Q9966; Q9967

== ENCOUNTER 2018-05-31 15:43 | Emergency (ER) | payer OTHER ==
[2018-05-31 16:11] VITALS: RESP 18; BMI 29.0
[2018-05-31] MEDS ORDERED: Sodium Chloride 0.9% 1,000 ML IV SCH (16:45)
--- NOTE | 2018-05-31 16:58 | ED PDOC ---
Arrival/HPI - General Chief Complaint: Dizziness/Lightheaded Time Seen by Provider: 05/31/18 16:09 Historian: Patient - History of Present Illness Narrative History of Present Illness (Text): 05/31/18 16:57 A 57 year old female, whose past medical history includes Diabetes, takes metformin, s/p cholecystectomy, presents to the emergency department complaining of generalized weakness and dizziness, associated with left upper chest discomfort. States episode started at 12:00 while drinking coffee and lasted for approximately 10 minutes, resolving on its own. Patient describes dizziness as a room-spinning sensation. She notes still feeling weak at this time. Mentions having similar symptoms 2 years ago and was diagnosed with dehydration. Patient denies shortness of breath, back pain, abdominal pain, nausea, vomiting, diarrhea, or any other complaints at this time. Patient notes fingerstick taken is 95 fasting. Mentions family history of Diabetes and Coronary Artery Disease. PMD clinic Past Medical History - Provider Review Nursing Documentation Reviewed: Yes - Infectious Disease Hx of Infectious Diseases: None - Tetanus Immunization Tetanus Immunization: Unknown - Past Medical History Past Medical History: No Previous - Cardiac Hx Cardiac Disorders: No - Pulmonary Hx Respiratory Disorders: Yes Hx Bronchitis: Yes - Neurological Hx Neurological Disorder: No - HEENT Hx HEENT Disorder: No - Renal Hx Renal Disorder: No - Endocrine/Metabolic Hx Endocrine Disorders: Yes Hx Diabetes Mellitus Type 2: Yes (NIDD) - Hematological/Oncological Hx Blood Disorders: No - Integumentary Hx Dermatological Disorder: No - Musculoskeletal/Rheumatological Hx Musculoskeletal Disorders: No - Gastrointestinal Hx Gastrointestinal Disorders: Yes Hx Gastritis: Yes - Genitourinary/Gynecological Hx Genitourinary Disorders: No - Psychiatric Hx Psychophysiologic Disorder: No Hx Substance Use: No - Surgical History Hx Cholecystectomy: Yes Hx Hysterectomy: Yes Hx Orthopedic Surgery: Yes (jaime foot surgery; left knee surgery) Other/Comment: HYSTERECTOMY 1998 - Anesthesia Hx Anesthesia: Yes Hx Anesthesia Reactions: No Hx Malignant Hyperthermia: No - Suicidal Assessment Feels Threatened In Home Enviroment: No Family/Social History - Physician Review Nursing Documentation Reviewed: Yes Family/Social History: Diabetes, CAD/[place] Smoking Status: Light Smoker < 10 Cigarettes Daily Hx Alcohol Use: No Hx Substance Use: No Hx Substance Use Treatment: No Allergies/Home Meds Allergies/Adverse Reactions: Allergies No Known Allergies Allergy (Verified 05/31/18 16:09) per patient Home Medications: Home Meds Medication Instructions Recorded Confirmed Calcium Carbonate [Calcium] 600 mg PO BID 04/20/18 05/31/18 Ergocalciferol [Drisdol 50,000 1 cap PO Q7D 04/20/18 05/31/18 Intl Units Cap] Review of Systems - Physician Review All systems were reviewed & negative as marked: Yes - Review of Systems Constitutional: Other (generalized weakness.) Respiratory: absent: SOB Cardiovascular: Other (left upper chest discomfort.) Gastrointestinal: absent: Abdominal Pain, Diarrhea, Nausea, Vomiting Musculoskeletal: absent: Back Pain Neurological: Dizziness (room-spinning sensation according to patient.) Physical Exam Vital Signs Reviewed: Yes Vital Signs Pulse Resp BP Pulse Ox 05/31/18 19:37 91 H 18 140/64 97 05/31/18 17:22 89 18 133/72 99 05/31/18 16:10 96 H 18 130/74 99 Blood Pressure: Normal Pulse: Tachycardic Respiratory Rate: Normal Appearance: Positive for: Well-Appearing, Non-Toxic, Comfortable Pain Distress: None Mental Status: Positive for: Alert and Oriented X 3 Finger Stick Blood Glucose: 174 - Systems Exam Head: Present: Atraumatic, Normocephalic Pupils: Present: PERRL Extroacular Muscles: Present: Other (horizontal nystagmus) Conjunctiva: Present: Normal Mouth: Present: Dry Neck: Present: Normal Range of Motion Respiratory/Chest: Present: Clear to Auscultation, Good Air Exchange. No: Respiratory Distress, Accessory Muscle Use Cardiovascular: Present: Tachycardic Abdomen: No: Tenderness, Distention, Peritoneal Signs Back: Present: Normal Inspection Upper Extremity: Present: Normal Inspection. No: Cyanosis, Edema Lower Extremity: Present: Normal Inspection. No: Edema Neurological: Present: GCS=15, CN II-XII Intact, Speech Normal Skin: Present: Warm, Dry, Normal Color. No: Rashes Psychiatric: Present: Alert, Oriented x 3, Normal Insight, Normal Concentration Medical Decision Making ED Course and Treatment: 05/31/18 17:00 Impression: 57 year old female with generalized weakness and dizziness described as room-spinning sensation, associated with left upper chest discomfort. Plan: -- EKG -- Head CT -- Chest X-ray -- Labs -- Antivert -- IV Fluids -- Urine Culture -- Urinalysis -- Reassess and disposition Progress Notes: EKG : NSR at 95 bpm, no acute ST changes, as read by PA CXR : NAD, as read by PA CT head : No evidence of acute intracranial hemorrhage, intracranial collection , mass effect or midline shift. 05/31/18 19:30 On reevaluation, patient reports improvement of symptoms, denies any headache, dizziness, CP, SOB, N/V. On exam, patient remains awake alert and oriented 3 in no acute distress. Repeat neuro exam shows no focal findings. Considering patient's PMHx and presentation a 3 hour repeat troponin will be ordered, however the patient is refusing to wait to have 2nd troponin drawn. Patient refuses further care, evaluation or treatment in the ER. Patient informed of the reasons for the following and planned treatment, which patient understands, however still refuses. Patient informed of the risk and benefits of treatment. Informed that the risk could include worsening of current conditions, undiagnosed conditions, disability or even . Patient understands the following risk and the benefits of treatment. Patient has the capacity to make decisions and still refuses treatment by RN, ABDULLAHI and ER MD. Patient encouraged to return to the ER at any time and to follow up with pmd. - Lab Interpretations Lab Results: 05/31/18 17:00 05/31/18 17:00 Lab Results 05/31/18 17:00: Sodium 144, Potassium 4.1, Chloride 106, Carbon Dioxide 28, Anion Gap 14, BUN 12, Creatinine 0.6 L, Est GFR ( Amer) > 60, Est GFR ( Non-Af Amer) > 60, Random Glucose 142 H, Calcium 9.7, Magnesium 2.1, Total Bilirubin 0.8, AST 48 H D, ALT 36, Alkaline Phosphatase 68, Lactate Dehydrogenase 429, Total Creatine Kinase 198, Troponin I < 0.01, Total Protein 8.1, Albumin 4.5, Globulin 3.5, Albumin/Globulin Ratio 1.3 05/31/18 17:00: Urine Color Yellow, Urine Appearance Clear, Urine pH 6.0, Ur Specific [place] 1.025, Urine Protein Negative, Urine Glucose (UA) Negative, Urine Ketones Negative, Urine Blood Negative, Urine Nitrate Negative, Urine Bilirubin Negative, Urine Urobilinogen 1.0 H, Ur Leukocyte Esterase Negative 05/31/18 17:00: WBC 6.8 D, RBC 4.86, Hgb 15.2, Hct 43.3, MCV 89.1, MCH 31.3, MCHC 35.1, RDW 12.5, Plt Count 142, MPV 10.3, Gran % 65.3, Lymph % (Auto) 27.6, [place] % (Auto) 5.5, Eos % (Auto) 1.3 L, Baso % (Auto) 0.3, Gran # 4.42, Lymph # ( Auto) 1.9, [place] # (Auto) 0.4, Eos # (Auto) 0.1, Baso # (Auto) 0.02 - RAD Interpretation Radiology Orders: 05/31/18 16:38 HEAD W/O CONTRAST [CT] Stat CHEST ONE VIEW [RAD] Stat - Medication Orders Current Medication Orders: Discontinued Medications Sodium Chloride (Sodium Chloride 0.9%) 100 mls @ 1,000 mls/hr IV .Q6M HARSHA Sodium Chloride (Sodium Chloride 0.9%) 100 mls @ 1,000 mls/hr IV .Q6M STA Stop: 05/31/18 17:14 Last Admin: 05/31/18 17:04 Dose: 1,000 mls/hr eMAR Start Stop Document 05/31/18 17:04 HI (Rec: 05/31/18 17:31 HI [id number]) Intravenous Solution Start Date 05/31/18 Start Time 17:04 Meclizine HCl (Antivert) 25 mg PO STAT STA Stop: 05/31/18 16:39 Last Admin: 05/31/18 17:06 Dose: 25 mg - PA / DRESS FINISHER / Resident Statement MD/DO has reviewed & agrees with the documentation as recorded. - Scribe Statement The provider has reviewed the documentation as recorded by the Lu Michel Provider Scribe Provider Scribe Attestation: All medical record entries made by the Lu were at my direction and personally dictated by me. I have reviewed the chart and agree that the record accurately reflects my personal performance of the history, physical exam, medical decision making, and the department course for this patient. I have also personally directed, reviewed, and agree with the discharge instructions and disposition. Disposition/Present on Arrival - Present on Arrival Any Indicators Present on Arrival: No History of DVT/PE: No History of Uncontrolled Diabetes: No Urinary Catheter: No History of Decub. Ulcer: No History Surgical Site Infection Following: Orthopedic Procedures - Disposition Have Diagnosis and Disposition been Completed?: Yes Diagnosis: Dizziness, Chest pain Disposition: AGAINST MEDICAL ADVICE Disposition Time: 19:30 Condition: STABLE Discharge Instructions (ExitCare): Dizziness, Nonvertigo, (DC), Leaving Against Medical Advice, Chest Pain (ED) Additional Instructions: Thank you for letting us take care of you today. You are leaving AGAINST MEDICAL ADVICE. You were treated for dizziness, chest pain. The emergency medical care you received today was directed at your acute symptoms. If you were prescribed any medication, please fill it and take as directed. It may take several days for your symptoms to resolve. Return to the Emergency Department if your symptoms worsen, do not improve, or if you have any other problems. Please contact your doctor in 2 days for re-evaluation and follow up. Bring any paperwork you were given at discharge with you along with any medications you are taking to your follow up visit. Our treatment cannot replace ongoing medical care by a primary care provider (PCP) outside of the emergency department. Thank you for allowing the [facility] team to be part of your care today. If you had an X-Ray or CT scan: A Radiologist will review the ED reading if any change in treatment is needed we will contact you. Forms: [employer] (Kiswahili)
[2018-05-31] MEDS ORDERED: Sodium Chloride 0.9% 1,000 ML IV STA (17:10)
[2018-05-31 17:19] LABS: BASO # 0.02 K/mm3 (0.0-2.0); BASO % 0.3 % (0.0-3.0); EOS # 0.1 (0.0-0.7); EOS % 1.3 % (1.5-5.0); GRAN # 4.42 (1.4-6.5); GRAN % 65.3 % (50.0-68.0); HEMOGLOBIN 15.2 g/dL (12.0-16.0); LYMPH # 1.9 (1.2-3.4); LYMPH % 27.6 % (22.0-35.0); MEAN CELL VOLUME 89.1 fl (80.0-105.0); MEAN CORPUSCULAR HEMOGLOBIN 31.3 pg (25.0-35.0); MEAN CORPUSCULAR HGB CONC 35.1 g/dl (31.0-37.0); MEAN PLATELET VOLUME 10.3 fl (7.0-11.0); MONO # 0.4 (0.1-0.6); MONO % 5.5 % (1.0-6.0); RBC 4.86 10^6/uL (3.5-6.1); RED CELL DISTRIBUTION WIDTH 12.5 % (11.5-14.5); WHITE BLOOD COUNT 6.8 10^3/ul (4.5-11.0)
[2018-05-31 17:20] LABS: URINE BILIRUBIN NEGATIVE (NEGATIVE); URINE BLOOD NEGATIVE (NEGATIVE); URINE GLUCOSE (UA) NEGATIVE (NEGATIVE); URINE LEUKOCYTE ESTERASE NEGATIVE Leu/uL (NEGATIVE); URINE PROTEIN NEGATIVE mg/dL (<30 mg/dL)
[2018-05-31 17:21] LABS: URINE APPEARANCE CLEAR (CLEAR); URINE COLOR YELLOW (YELLOW)
[2018-05-31 17:30] LABS: ALB/GLOB RATIO 1.3 (1.1-1.8); ALBUMIN 4.5 g/dL (3.0-4.8); ALT/SGPT 36 U/L (7-56); AST/SGOT 48 U/L (14-36); BLOOD UREA NITROGEN 12 mg/dL (7-21); CALCIUM 9.7 mg/dL (8.4-10.5); GFR NON-AFRICAN AMERICAN > 60
[2018-05-31 17:41] LABS: TROPONIN I < 0.01 ng/mL
--- NOTE | 2018-05-31 18:18 | RAD ---
Date of service: 05/31/2018 PROCEDURE: CHEST RADIOGRAPH, 1 VIEW HISTORY: dizziness COMPARISON: None available. FINDINGS: LUNGS: Clear. PLEURA: No pneumothorax or pleural fluid seen. CARDIOVASCULAR: Normal. OSSEOUS STRUCTURES: No significant abnormalities. VISUALIZED UPPER ABDOMEN: Normal. OTHER FINDINGS: None. IMPRESSION: No active disease.
--- NOTE | 2018-05-31 18:48 | CT ---
Date of service: 05/31/2018 PROCEDURE: CT HEAD WITHOUT CONTRAST. HISTORY: dizziness COMPARISON: None available. TECHNIQUE: Axial computed tomography images were obtained through the head/brain without intravenous contrast. Radiation dose: Total exam DLP = 928.7 mGy-cm. This CT exam was performed using one or more of the following dose reduction techniques: Automated exposure control, adjustment of the mA and/or kV according to patient size, and/or use of iterative reconstruction technique. FINDINGS: HEMORRHAGE: No intracranial hemorrhage. BRAIN: No mass effect or edema. No atrophy or chronic microvascular ischemic changes. VENTRICLES: Unremarkable. No hydrocephalus. CALVARIUM: Unremarkable. PARANASAL SINUSES: Unremarkable as visualized. No significant inflammatory changes. MASTOID AIR CELLS: Unremarkable as visualized. No inflammatory changes. OTHER FINDINGS: None. IMPRESSION: No evidence of acute intracranial hemorrhage intracranial collection mass effect or midline shift.
[2018-05-31 19:37] VITALS: BP 140/64; PULSE 91; O2SAT 97
--- NOTE | 2018-06-01 21:38 | CARD ---
APPROVED REPORT Date of service: 05/31/2018 EKG Measurement Heart [id number] <Conclusion> Normal sinus rhythm Normal ECG
== END 2018-05-31 20:00 | disposition left against medical advice (07) ==
LOC: ED 15:43
DX: R07.9 Chest pain, unspecified (principal); R42 Dizziness and giddiness

== ENCOUNTER 2018-07-06 17:07 | Emergency (ER) | payer OTHER ==
[2018-07-06 17:07] VITALS: BMI 29.0
[2018-07-06 17:33] VITALS: TEMP 98.6; O2SAT 99
[2018-07-06] MEDS ORDERED: Alum-Mag Hydrox-Simethicone Susp (30 mL) PO STA (17:38)
--- NOTE | 2018-07-06 17:54 | ED PDOC ---
Arrival/HPI - General Chief Complaint: Abdominal Pain Time Seen by Provider: 07/06/18 17:29 Historian: Patient - History of Present Illness Narrative History of Present Illness (Text): 07/06/18 17:29 57 year old female, with past medical history of DM, gastritis and cholecystectomy 8 years ago, presents to the Emergency Department complaining of intermittent epigastric pain since 1 year. Patient informs burning sensation worsening for the past 2 weeks prompting her to present to the Emergency Department for medical evaluation. Patient informs visiting the community clinic but denies following up with a GI specialist for the presented symptoms. Patient denies any other associated somatic complaints. Patient denies any fever, chills, nausea, vomiting, diarrhea, chest pain, shortness of breath, neck pain, back pain, dysuria, hematuria, urinary output changes, changes in bowel movement, vaginal bleeding or discharge or any other complaints. Time/Duration: > month (1 year) Symptom Onset: Gradual Symptom Course: Worsening Quality: Burning Activities at Onset: Light Context: Home Past Medical History - Provider Review Nursing Documentation Reviewed: Yes - Infectious Disease Hx of Infectious Diseases: None - Tetanus Immunization Tetanus Immunization: Unknown - Reproductive Menopause: No - Past Medical History Past Medical History: No Previous - Cardiac Hx Cardiac Disorders: No - Pulmonary Hx Respiratory Disorders: Yes Hx Bronchitis: Yes - Neurological Hx Neurological Disorder: No - HEENT Hx HEENT Disorder: No - Renal Hx Renal Disorder: No - Endocrine/Metabolic Hx Endocrine Disorders: Yes Hx Diabetes Mellitus Type 2: Yes (NIDD) - Hematological/Oncological Hx Blood Disorders: No - Integumentary Hx Dermatological Disorder: No - Musculoskeletal/Rheumatological Hx Musculoskeletal Disorders: No - Gastrointestinal Hx Gastrointestinal Disorders: Yes Hx Gastritis: Yes - Genitourinary/Gynecological Hx Genitourinary Disorders: No - Psychiatric Hx Psychophysiologic Disorder: No Hx Substance Use: No - Surgical History Hx Cholecystectomy: Yes Hx Hysterectomy: Yes Hx Orthopedic Surgery: Yes (jaime foot surgery; left knee surgery) Other/Comment: HYSTERECTOMY 1997 - Anesthesia Hx Anesthesia: Yes Hx Anesthesia Reactions: No Hx Malignant Hyperthermia: No - Suicidal Assessment Feels Threatened In Home Enviroment: No Family/Social History - Physician Review Nursing Documentation Reviewed: Yes Family/Social History: No Known Family HX Smoking Status: Light Smoker < 10 Cigarettes Daily Hx Alcohol Use: No Hx Substance Use: No Hx Substance Use Treatment: No Allergies/Home Meds Allergies/Adverse Reactions: Allergies No Known Allergies Allergy (Verified 05/31/18 16:09) per patient Home Medications: Home Meds Medication Instructions Recorded Confirmed Calcium Carbonate [Calcium] 600 mg PO BID 04/20/18 05/31/18 Ergocalciferol [Drisdol 50,000 1 cap PO Q7D 04/20/18 05/31/18 Intl Units Cap] Review of Systems - Review of Systems Constitutional: absent: Fevers Respiratory: absent: SOB, Cough Cardiovascular: absent: Chest Pain, [place] Gastrointestinal: Abdominal Pain. absent: Stool Changes, Constipation, Diarrhea, Nausea, Vomiting, Appetite Changes Genitourinary Female: absent: Dysuria, Hematuria, Urine Output Changes, Vaginal Bleeding, Vaginal Discharge Musculoskeletal: absent: Back Pain, Neck Pain Neurological: absent: Headache, Dizziness Physical Exam Vital Signs Reviewed: Yes Vital Signs Temp Pulse Resp BP Pulse Ox 07/06/18 17:23 98.6 F 94 H 20 124/79 99 Temperature: Afebrile Blood Pressure: Normal Pulse: Regular Respiratory Rate: Normal Appearance: Positive for: Well-Appearing, Non-Toxic, Comfortable Pain Distress: None Mental Status: Positive for: Alert and Oriented X 3 - Systems Exam Head: Present: Atraumatic, Normocephalic Pupils: Present: PERRL Extroacular Muscles: Present: EOMI Conjunctiva: Present: Normal Mouth: Present: Moist Mucous Membranes Neck: Present: Normal Range of Motion Respiratory/Chest: Present: Clear to Auscultation, Good Air Exchange. No: Respiratory Distress, Accessory Muscle Use Cardiovascular: Present: Regular Rate and Rhythm, Normal S1, S2. No: Murmurs Abdomen: Present: Tenderness (scant epigastric tenderness). No: Distention, Peritoneal Signs Back: Present: Normal Inspection Upper Extremity: Present: Normal Inspection. No: Cyanosis, Edema Lower Extremity: Present: Normal Inspection. No: Edema Neurological: Present: GCS=15, CN II-XII Intact, Speech Normal Skin: Present: Warm, Dry, Normal Color. No: Rashes Psychiatric: Present: Alert, Oriented x 3, Normal Insight, Normal Concentration Medical Decision Making ED Course and Treatment: 07/06/18 17:29 Impression: 57 year old female presents to the Emergency Department complaining of epigastric pain. Plan: -- CT of Abdomen/Pelvis -- EKG -- Labs -- Toradol -- Urinalysis -- Reassess and disposition Prior Visits: Notes and results from previous visits were reviewed. Progress Notes: 07/06/18 17:29 EKG: Ordered, reviewed, and independently interpreted the EKG. Rate : 99 BPM Rhythm : NSR Interpretation : No ST-segment elevations or depressions, no T-wave inversions, normal intervals. 07/06/18 20:38 CT shows hepatosplenomegaly, s/p cholecystectomy with mild extrahepatic and intrahepatic ductal diliation and enteritis. Patient previously tested negative for h.pylori. She was instructed to follow-up with GI 07/06/18 20:45 - RAD Interpretation Radiology Orders: 07/06/18 17:29 ABD & PELVIS IV CONTRAST ONLY [CT] Stat - Medication Orders Current Medication Orders: Discontinued Medications Al Hydrox/Mg Hydrox/Simethicone (Maalox Plus 30 Ml) 30 ml PO STAT STA Stop: 07/06/18 17:39 Famotidine (Pepcid) 20 mg IVP STAT STA Stop: 07/06/18 17:39 Ketorolac Tromethamine (Toradol) 30 mg IVP STAT STA Stop: 07/06/18 17:39 - Scribe Statement The provider has reviewed the documentation as recorded by the Scribe Briana Blair. All medical record entries made by the Scribe were at my direction and personal ly dictated by me. I have reviewed the chart and agree that the record accurately reflects my personal performance of the history, physical exam, medical decision making, and the department course for this patient. I have also personally directed, reviewed, and agree with the discharge instructions and disposition. Disposition/Present on Arrival - Present on Arrival Any Indicators Present on Arrival: No History of DVT/PE: No History of Uncontrolled Diabetes: No Urinary Catheter: No History of Decub. Ulcer: No History Surgical Site Infection Following: Orthopedic Procedures - Disposition Have Diagnosis and Disposition been Completed?: Yes Diagnosis: Enteritis, Intrahepatic bile duct dilation, Hepatosplenomegaly Disposition: HOME/ ROUTINE Disposition Time: 20:39 Patient Plan: Discharge Patient Problems: Current Active Problems Problem Status Onset Enteritis Acute Hepatosplenomegaly Acute Intrahepatic bile duct dilation Acute Condition: GOOD Discharge Instructions (ExitCare): Gastritis, [place] Diet Additional Instructions: Follow-up with GI for further evaluation and likely endoscopy and colonoscopy. Return to ED if condition worsens. Follow-up with PMD Prescriptions: Famotidine [Pepcid] 40 mg PO DAILY #30 tab Referrals: Anthony Melgar DO [Staff Provider] - Follow up with primary Forms: [employer] (Citizen Of [place])
[2018-07-06 18:35] LABS: ALB/GLOB RATIO 1.2 (1.1-1.8); ALBUMIN 4.2 g/dL (3.0-4.8); ALT/SGPT 30 U/L (7-56); AST/SGOT 29 U/L (14-36); BLOOD UREA NITROGEN 12 mg/dL (7-21); CALCIUM 9.7 mg/dL (8.4-10.5); GFR NON-AFRICAN AMERICAN > 60; LIPASE 69 U/L (23-300)
[2018-07-06 18:47] LABS: TROPONIN I < 0.01 ng/mL
[2018-07-06 19:13] LABS: BASO # 0.01 K/mm3 (0.0-2.0); BASO % 0.2 % (0.0-3.0); EOS # 0.1 (0.0-0.7); EOS % 1.5 % (1.5-5.0); GRAN # 3.53 (1.4-6.5); GRAN % 57.4 % (50.0-68.0); HEMOGLOBIN 14.6 g/dL (12.0-16.0); LYMPH # 2.1 (1.2-3.4); LYMPH % 34.4 % (22.0-35.0); MEAN CELL VOLUME 88.5 fl (80.0-105.0); MEAN CORPUSCULAR HEMOGLOBIN 30.5 pg (25.0-35.0); MEAN CORPUSCULAR HGB CONC 34.4 g/dl (31.0-37.0); MEAN PLATELET VOLUME 10.9 fl (7.0-11.0); MONO # 0.4 (0.1-0.6); MONO % 6.5 % (1.0-6.0); RBC 4.79 10^6/uL (3.5-6.1); RED CELL DISTRIBUTION WIDTH 12.2 % (11.5-14.5); WHITE BLOOD COUNT 6.1 10^3/ul (4.5-11.0)
[2018-07-06] MEDS ORDERED: Iohexol 350 MG/100 ML VIAL ONE (19:22)
[2018-07-06 21:11] VITALS: BP 118/67; PULSE 72; RESP 19
--- NOTE | 2018-07-07 06:31 | CARD ---
APPROVED REPORT Date of service: 07/06/2018 EKG Measurement Heart [id number] <Conclusion> Normal sinus rhythm Normal ECG
--- NOTE | 2018-07-07 09:43 | CT ---
Date of service: 07/06/2018 PROCEDURE: CT Abdomen and Pelvis with contrast HISTORY: abdominal pain COMPARISON: 04/20/2018 TECHNIQUE: Intravenous contrast dose: 100 cc Omnipaque 350. Radiation dose: Total exam DLP = 593.27 mGy-cm. This CT exam was performed using one or more of the following dose reduction techniques: Automated exposure control, adjustment of the mA and/or kV according to patient size, and/or use of iterative reconstruction technique. FINDINGS: LOWER THORAX: Unremarkable. LIVER: Hepatic steatosis. No focal masses. No intrahepatic bile duct dilatation or perihepatic ascites. GALLBLADDER AND BILE DUCTS: Status post cholecystectomy. No abnormality is seen in the gallbladder fossa. PANCREAS: Unremarkable. No gross lesion or ductal dilatation. SPLEEN: Unremarkable. ADRENALS: Unremarkable. No mass. KIDNEYS AND URETERS: Unremarkable. No hydronephrosis. No solid mass. VASCULATURE: Unremarkable. No aortic aneurysm. BOWEL: Constipation without fecal impaction or obstruction. APPENDIX: Normal appendix. PERITONEUM: Unremarkable. No free fluid. No free air. LYMPH NODES: Unremarkable. No enlarged lymph nodes. BLADDER: Unremarkable. REPRODUCTIVE: Prior hysterectomy BONES: No acute fracture. OTHER FINDINGS: None. IMPRESSION: No acute findings related to/accounting for the clinical presentation. Additional benign and/or incidental findings described above. No significant interval change compared to the prior examination(s). Concordant results (preliminary interpretation) provided by [employer]. Procedure Completed: 19:34. Preliminary Report: Dictated and Authenticated: 20:19. Final Interpretation: 09:39.
== END 2018-07-06 21:08 | disposition home or self-care (01) ==
LOC: ED 17:07
DX: K52.9 Noninfective gastroenteritis and colitis, unspecified (principal); R16.2 Hepatomegaly with splenomegaly, not elsewhere classified; K83.8 Other specified diseases of biliary tract; E11.9 Type 2 diabetes mellitus without complications; F17.210 Nicotine dependence, cigarettes, uncomplicated
CPT/HCPCS: 74177; 80053; 83690; 84484; 85025; 93005; 96374; 96375; 99284; J1885; Q9967

== ENCOUNTER 2018-10-05 20:49 | Emergency (ER) | payer OTHER ==
[2018-10-05 20:54] VITALS: BMI 27.3
[2018-10-05 20:58] VITALS: RESP 18; TEMP 98.1
--- NOTE | 2018-10-05 21:30 | ED PDOC ---
Arrival/HPI <Tucker Richardson - Last Filed: 10/05/18 21:42> - General Historian: Patient - History of Present Illness Narrative History of Present Illness (Text): 10/05/18 21:27 57 y/o female, no significant pmh, nkda, post menopausal, c/o Lt. knee and ankle pain s/p twisted about 1 hour ago while walking on the uneven pavement. Aching pain, able to bear weight, no numbness or tingling, no calf pain, no thigh pain, no other medical or psychological complaints. <Jc Howard - Last Filed: 10/05/18 22:00> - General Chief Complaint: Lower Extremity Problem/Injury Past Medical History - Provider Review Nursing Documentation Reviewed: Yes - Infectious Disease Hx of Infectious Diseases: None - Tetanus Immunization Tetanus Immunization: Unknown - Past Medical History Past Medical History: No Previous - Cardiac Hx Cardiac Disorders: No - Pulmonary Hx Respiratory Disorders: Yes Hx Bronchitis: Yes - Neurological Hx Neurological Disorder: No - HEENT Hx HEENT Disorder: Yes Other/Comment: glasses - Renal Hx Renal Disorder: No - Endocrine/Metabolic Hx Endocrine Disorders: Yes Hx Diabetes Mellitus Type 2: Yes (NIDD) - Hematological/Oncological Hx Blood Disorders: No - Integumentary Hx Dermatological Disorder: No - Musculoskeletal/Rheumatological Hx Musculoskeletal Disorders: No Hx Falls: Yes - Gastrointestinal Hx Gastrointestinal Disorders: Yes Hx Gastritis: Yes - Genitourinary/Gynecological Hx Genitourinary Disorders: No - Psychiatric Hx Psychophysiologic Disorder: No Hx Substance Use: No - Surgical History Hx Cholecystectomy: Yes Hx Hysterectomy: Yes Hx Orthopedic Surgery: Yes (jaime foot surgery; left knee surgery) Other/Comment: HYSTERECTOMY 1997 - Anesthesia Hx Anesthesia: Yes Hx Anesthesia Reactions: No Hx Malignant Hyperthermia: No - Suicidal Assessment Feels Threatened In Home Enviroment: No <Jc Howard - Last Filed: 10/05/18 22:00> Family/Social History - Physician Review Nursing Documentation Reviewed: Yes Family/Social History: Unknown Family HX Smoking Status: Light Smoker < 10 Cigarettes Daily Hx Alcohol Use: No Hx Substance Use: No Hx Substance Use Treatment: No <Jc Howard - Last Filed: 10/05/18 22:00> Allergies/Home Meds <Tucker Richardson - Last Filed: 10/05/18 21:42> <Jc Howard - Last Filed: 10/05/18 22:00> Allergies/Adverse Reactions: Allergies No Known Allergies Allergy (Verified 10/05/18 20:55) per patient Home Medications: Home Meds Medication Instructions Recorded Confirmed Calcium Carbonate [Calcium] 600 mg PO BID 04/20/18 05/31/18 Ergocalciferol [Drisdol 50,000 1 cap PO Q7D 04/20/18 05/31/18 Intl Units Cap] Review of Systems - Review of Systems Constitutional: absent: Fatigue Eyes: absent: Vision Changes ENT: absent: Hearing Changes Respiratory: absent: SOB, Cough Cardiovascular: absent: Chest Pain Gastrointestinal: absent: Abdominal Pain, Nausea, Vomiting Musculoskeletal: Arthralgias, Joint Swelling. absent: Back Pain, Neck Pain, Myalgias Skin: absent: Rash, Pruritis Neurological: absent: Headache, Dizziness Psychiatric: absent: Anxiety, Depression, Suicidal Ideation <Jc Howard Lisandro - Last Filed: 10/05/18 22:00> Physical Exam Vital Signs Temp Pulse Resp BP Pulse Ox 10/05/18 20:56 98.1 F 92 H 18 132/84 98 <Tucker Richardson - Last Filed: 10/05/18 21:42> Vital Signs Reviewed: Yes Vital Signs Temp Pulse Resp BP Pulse Ox 10/05/18 20:56 98.1 F 92 H 18 132/84 98 Temperature: Afebrile Blood Pressure: Normal Pulse: Regular Respiratory Rate: Normal Appearance: Positive for: Well-Appearing, Non-Toxic, Comfortable Pain Distress: Mild Mental Status: Positive for: Alert and Oriented X 3 - Systems Exam Head: Present: Atraumatic, Normocephalic, Other (no facial bony tenderness). No: Tenderness, Contusion, Swelling, Ecchymosis, Abrasion, Laceration Pupils: Present: PERRL Extroacular Muscles: Present: EOMI Conjunctiva: Present: Normal Mouth: Present: Moist Mucous Membranes Nose (Internal): Present: Normal Inspection, No Active Bleeding Neck: Present: Normal Range of Motion, Trachea Midline. No: MIDLINE TENDERNESS, Paraspinal Tenderness, Lymphadenopathy Respiratory/Chest: Present: Clear to Auscultation, Good Air Exchange. No: Respiratory Distress, Accessory Muscle Use Cardiovascular: Present: Regular Rate and Rhythm, Normal S1, S2. No: Murmurs Abdomen: No: Tenderness, Distention, Peritoneal Signs, Rebound, Guarding Back: Present: Normal Inspection Upper Extremity: Present: Normal Inspection. No: Cyanosis, Edema Lower Extremity: Present: Normal Inspection, Other (Lt. Lowe extremity: +ttp on the lateral knee and ankle region with mild swelling, negative annel and li signs, FROM without limitation, sensation intact, motor 5/5, +DPPT pulses, capillary refill< 2 seconds, neurovascular intact. ). No: Edema Neurological: Present: GCS=15, CN II-XII Intact, Speech Normal Skin: Present: Warm, Dry, Normal Color. No: Rashes Psychiatric: Present: Alert, Oriented x 3, Normal Insight, Normal Concentration <Jc Howard - Last Filed: 10/05/18 22:00> Medical Decision Making - RAD Interpretation Radiology Orders: 10/05/18 21:31 ANKLE LEFT 3 VIEWS ROUTINE [RAD] Stat KNEE WITH PATELLA LEFT 3 VIEW [RAD] Stat - Medication Orders Current Medication Orders: Discontinued Medications Acetaminophen (Tylenol 325mg Tab) 650 mg PO STAT STA Stop: 10/05/18 21:32 Last Admin: 10/05/18 21:41 Dose: 650 mg <Tucker Richardson - Last Filed: 10/05/18 21:42> ED Course and Treatment: 10/05/18 21:33 -xrays -tylenol -observe and reassess 10/05/18 21:57 -Lt. ankle xray: ER wet read: no fracture or dislocation -Lt. knee xray: ER wet read: no fracture or dislocation -Pain decreased, taylor wrap, crutches (refused and request cane). -Discharge home with taylor wrap, crutches, celebrex, ice compression, weight bearing as tolerated or non weight bearing, follow up with your own pmd and orthopedic within 2 days return to the ER for any new or worsening signs or symptoms. - RAD Interpretation Radiology Orders: -Lt. ankle xray -Lt. knee xray Vegetable Vendor: Radiologist <Jc Howard - Last Filed: 10/05/18 22:00> - PA / CEMENT RUBBER / Resident Statement SHELLY has reviewed & agrees with the documentation as recorded. <Tucker Richardson - Last Filed: 10/05/18 21:42> - PA / CEMENT RUBBER / Resident Statement SHELLY has reviewed & agrees with the documentation as recorded. <Jc Howard - Last Filed: 10/05/18 22:00> Disposition/Present on Arrival <Tucker Richardson - Last Filed: 10/05/18 21:42> - Present on Arrival Any Indicators Present on Arrival: No History of DVT/PE: No History of Uncontrolled Diabetes: No Urinary Catheter: No History of Decub. Ulcer: No History Surgical Site Infection Following: Orthopedic Procedures - Disposition Have Diagnosis and Disposition been Completed?: Yes Disposition Time: 21:59 Patient Plan: Discharge <Jc Howard - Last Filed: 10/05/18 22:00> - Disposition Diagnosis: Fall, Arthralgia Disposition: HOME/ ROUTINE Condition: GOOD Additional Instructions: -Discharge home with taylor wrap, crutches, celebrex, ice compression, weight bearing as tolerated or non weight bearing, follow up with your own pmd and orthopedic within 2 days return to the ER for any new or worsening signs or symptoms. Prescriptions: Celecoxib [CeleBREX] 200 mg PO DAILY PRN #14 cap PRN Reason: pain Referrals: Maci Nelson MD [Primary Care Provider] - Follow up with primary Giulia Lozada MD [Staff Provider] - Follow up with primary Forms: [employer] (Romanian), WORK NOTE
[2018-10-05 23:33] VITALS: BP 131/84; PULSE 95; O2SAT 100
--- NOTE | 2018-10-06 12:09 | RAD ---
PROCEDURE: Left Ankle Radiographs. HISTORY: lt. ankle pain s/p twisting COMPARISON: None available FINDINGS: BONES: No acute displaced fracture. JOINTS: No dislocation. SOFT TISSUES: Mild soft tissue swelling. No evidence of radiopaque foreign body. OTHER FINDINGS: None. IMPRESSION: Mild soft tissue swelling. No acute displaced fracture, dislocation, or significant joint effusion identified. If symptoms persist or if there is clinical concern, x-ray follow-up in 7-10 days should be considered.
--- NOTE | 2018-10-06 12:10 | RAD ---
PROCEDURE: Left Knee Radiographs. HISTORY: pain s/p twisting COMPARISON: None available FINDINGS: BONES: No acute displaced fracture. JOINTS: No dislocation. JOINT EFFUSION: No significant joint effusion. OTHER FINDINGS: None. IMPRESSION: No acute displaced fracture, dislocation, or significant joint effusion identified. If symptoms persist, or if there is continued clinical concern, x-ray follow-up in 7-10 days should be considered.
== END 2018-10-05 22:08 | disposition home or self-care (01) ==
LOC: ED 20:49
DX: M25.562 Pain in left knee (principal); M25.572 Pain in left ankle and joints of left foot; W18.30XA Fall on same level, unspecified, initial encounter; Y92.480 Sidewalk as the place of occurrence of the external cause

== ENCOUNTER 2018-11-04 18:47 | Emergency (ER) | payer OTHER ==
[2018-11-04 19:34] VITALS: BMI 26.6
--- NOTE | 2018-11-04 19:57 | ED PDOC ---
Arrival/HPI - General Chief Complaint: Cough, Cold, Congestion Time Seen by Provider: 11/04/18 18:51 - History of Present Illness Narrative History of Present Illness (Text): 11/04/18 19:51 57 y/o F w/ h/o gastritis presenting to the Emergency Room with complaint of URI symptoms. The patient states she had felt sinus congestion, nasal congestion alternating with rhinorrhea as well as global headaches ongoing intermittently for the last month. She reports gradual onset of headache, with no specific triggers and spontaneously resolves with the use of Tylenol and sleep. The patient reports having recent sick contact exposure with her sister and niece who were diagnosed with viral URI in the past month, but denies any other sources. She reports taking Robutussin in attempt to alleviate her symptoms with little success. The patient reports chills last night, but denies dizziness, nausea, presyncopal episodes, chest pain, shortness of breath, abdominal pain, emesis or weakness at this time. She reports missing her last clinic visit and had been unable to obtain a follow up appointment. Time/Duration: > month Symptom Onset: Gradual Symptom Course: Unchanged Quality: Pressure Severity Level: Mild Activities at Onset: Rest Context: Home Past Medical History - Provider Review Nursing Documentation Reviewed: Yes - Travel History Have you recently traveled outside [place] w/in the past 3 mons?: No - Infectious Disease Hx of Infectious Diseases: None - Tetanus Immunization Tetanus Immunization: Unknown - Reproductive Currently : No - Past Medical History Past Medical History: No Previous - Cardiac Hx Cardiac Disorders: No - Pulmonary Hx Respiratory Disorders: Yes Hx Bronchitis: Yes - Neurological Hx Neurological Disorder: No - HEENT Hx HEENT Disorder: Yes Other/Comment: glasses - Renal Hx Renal Disorder: No - Endocrine/Metabolic Hx Endocrine Disorders: Yes Hx Diabetes Mellitus Type 2: Yes (NIDD) - Hematological/Oncological Hx Blood Disorders: No - Integumentary Hx Dermatological Disorder: No - Musculoskeletal/Rheumatological Hx Musculoskeletal Disorders: No Hx Falls: Yes - Gastrointestinal Hx Gastrointestinal Disorders: Yes Hx Gastritis: Yes - Genitourinary/Gynecological Hx Genitourinary Disorders: No - Psychiatric Hx Psychophysiologic Disorder: No Hx Substance Use: No - Surgical History Hx Cholecystectomy: Yes Hx Hysterectomy: Yes Hx Orthopedic Surgery: Yes (jaime foot surgery; left knee surgery) Other/Comment: HYSTERECTOMY 1997 - Anesthesia Hx Anesthesia: Yes Hx Anesthesia Reactions: No Hx Malignant Hyperthermia: No - Suicidal Assessment Feels Threatened In Home Enviroment: No Family/Social History - Physician Review Nursing Documentation Reviewed: Yes Family/Social History: Unknown Family HX Smoking Status: Light Smoker < 10 Cigarettes Daily Hx Alcohol Use: No Hx Substance Use: No Hx Substance Use Treatment: No Allergies/Home Meds Allergies/Adverse Reactions: Allergies No Known Allergies Allergy (Verified 10/05/18 20:55) per patient Home Medications: Home Meds Medication Instructions Recorded Confirmed Calcium Carbonate [Calcium] 600 mg PO BID 04/20/18 11/04/18 Ergocalciferol [Drisdol 50,000 1 cap PO Q7D 04/20/18 11/04/18 Intl Units Cap] Review of Systems - Physician Review All systems were reviewed & negative as marked: Yes - Review of Systems Eyes: absent: Vision Changes, Photophobia, Eye Pain ENT: Rhinorrhea, Sinus Congestion. absent: Hearing Changes, Tinnitus, Sore Throat Respiratory: absent: SOB, Cough, Wheezing Cardiovascular: absent: Chest Pain, Palpitations, Edema, CALZADA Gastrointestinal: absent: Abdominal Pain Physical Exam Vital Signs Reviewed: Yes Vital Signs Temp Pulse Resp BP Pulse Ox 11/04/18 19:39 98.4 F 90 18 131/78 96 Temperature: Afebrile Blood Pressure: Normal Pulse: Regular Respiratory Rate: Normal Appearance: Positive for: Well-Appearing, Non-Toxic, Comfortable Mental Status: Positive for: Alert and Oriented X 3 - Systems Exam Head: Present: Atraumatic, Normocephalic, Tenderness (tenderness to palpation of maxillary sinuses) Pupils: Present: PERRL Extroacular Muscles: Present: EOMI Conjunctiva: Present: Normal Mouth: Present: Moist Mucous Membranes Neck: Present: Normal Range of Motion. No: Meningeal Signs Respiratory/Chest: Present: Clear to Auscultation, Good Air Exchange. No: Respiratory Distress Cardiovascular: Present: Regular Rate and Rhythm, Normal S1, S2 Abdomen: Present: Normal Bowel Sounds. No: Tenderness, Distention, Peritoneal Signs Upper Extremity: Present: Normal Inspection, Capillary Refill < 2s. No: Cyanosis, Edema Lower Extremity: Present: Normal Inspection, Capillary Refill < 2 s. No: Edema Neurological: Present: GCS=15, Speech Normal Skin: Present: Warm, Dry, Rashes, Normal Color Lymphatic: No: Cervical Adenopathy Psychiatric: Present: Alert, Oriented x 3, Normal Insight, Normal Concentration Medical Decision Making ED Course and Treatment: 11/04/18 19:59 Impression 57F presenting to the Emergency Room with complaint of nasal congestion and sinus pressure for 1 month Differential Diagnoses Includes But Is Not Limited To: --Rhinosinusitis --Sinusitis --Pre-septal cellulitis Plan --Labs --IVF --Rapid Flu --UA --CXR --Azithromycin --Prednisone --Reassess & disposition Progress Notes 11/04/18 21:03 Labs reviewed with no evidence of leukocytosis and negative Rapid flu. UA shows esterases with little bacteria. Patient denies dysuria or suprapubic tenderness at this current time. Findings discussed with patient who demonstrates understanding and will follow up in clinic. Oppertunity for questions given and answered. Scripts provided. She is stable for discharge. - Lab Interpretations Lab Results: 11/04/18 19:30 11/04/18 19:30 Lab Results 11/04/18 20:03: Urine Color Yellow, Urine Appearance Clear, Urine pH 6.0, Ur Specific [place] 1.010, Urine Protein Negative, Urine Glucose (UA) Negative, Urine Ketones Negative, Urine Blood Negative, Urine Nitrate Negative, Urine Bilirubin Negative, Urine Urobilinogen 1.0 H, Ur Leukocyte Esterase Trace H, Urine RBC None, Urine WBC 0 - 2, Ur Epithelial Cells 0 - 2, Urine Bacteria Trace 11/04/18 19:30: Influenza Typ A,B (EIA) Negative for flu a/b 11/04/18 19:30: Sodium 140, Potassium 3.7, Chloride 107, Carbon Dioxide 25, Anion Gap 11, BUN 13, Creatinine 0.5 L, Est GFR ( Amer) > 60, Est GFR (Non-Af Amer) > 60, Random Glucose 165 H, Calcium 9.4, Magnesium 1.9, Total Bilirubin 0.4, AST 27, ALT 16, Alkaline Phosphatase 86, Total Protein 7.8, Albumin 4.4, Globulin 3.3, Albumin/Globulin Ratio 1.3 11/04/18 19:30: WBC 6.4, RBC 4.62, Hgb 14.3, Hct 41.3, MCV 89.4, MCH 31.0, MCHC 34.6, RDW 12.4, Plt Count 131, MPV 10.3, Neut % (Auto) 60.4, Lymph % (Auto) 29.4, [place] % (Auto) 8.6 H, Eos % (Auto) 1.4 L, Baso % (Auto) 0.2, Lymph # (Auto) 1.9, [place] # (Auto) 0.6, Eos # (Auto) 0.1, Baso # (Auto) 0.01, Absolute Neuts (auto) 3.85 I have reviewed the lab results: Yes - RAD Interpretation Radiology Orders: 11/04/18 19:39 CHEST PORTABLE [RAD] Stat - Medication Orders Current Medication Orders: 11/04/18 21:02 Sodium Chloride (Sodium Chloride 0.9%) 1,000 mls @ 999 mls/hr IV .Q1H1M STA Stop: 11/04/18 21:11 Last Admin: 11/04/18 20:25 Dose: 999 mls/hr eMAR Start Stop Document 11/04/18 20:25 AD (Rec: 11/04/18 20:25 AD [id number]) Intravenous Solution Start Date 11/04/18 Start Time 20:25 Discontinued Medications Azithromycin (Zithromax) 500 mg PO STAT STA; Protocol Stop: 11/04/18 20:56 Metoclopramide HCl (Reglan) 10 mg IVP STAT STA Stop: 11/04/18 20:12 Last Admin: 11/04/18 20:25 Dose: 10 mg IVP Administration Document 11/04/18 20:25 AD (Rec: 11/04/18 20:25 AD [id number]) Charges for Administration # of IVP Administrations 1 Disposition/Present on Arrival - Present on Arrival Any Indicators Present on Arrival: No History of DVT/PE: No History of Uncontrolled Diabetes: No Urinary Catheter: No History of Decub. Ulcer: No History Surgical Site Infection Following: Orthopedic Procedures - Disposition Have Diagnosis and Disposition been Completed?: Yes Diagnosis: Rhinosinusitis, Viral respiratory illness Disposition: HOME/ ROUTINE Disposition Time: 21:09 Patient Plan: Discharge Condition: STABLE Discharge Instructions (ExitCare): Sinus Headache (DC), Viral Syndrome (DC), Sinusitis, Adult (DC) Print Language: NIGERIEN Additional Instructions: Please take your medications as prescribed Try to schedule an appointment with the clinic in 1 week If symptoms worsen(fevers, chills, persistent headaches, cough w/ phlegm), return to the ED for further evaluation Prescriptions: Azithromycin [Z-Armando] 250 mg PO DAILY #6 tab Methylprednisolone [Medrol Dose Pack (21 tabs)] 4 mg PO DAILY #21 mg Referrals: Maci Nelson MD [Medical Doctor] - Follow up with primary [facility] [Outside] - Follow up with primary Forms: [employer] (Croatian)
[2018-11-04 20:02] LABS: BASO # 0.01 K/mm3 (0.0-2.0); BASO % 0.2 % (0.0-3.0); EOS # 0.1 (0.0-0.7); EOS % 1.4 % (1.5-5.0); HEMOGLOBIN 14.3 g/dL (12.0-16.0); LYMPH # 1.9 (1.2-3.4); LYMPH % 29.4 % (22.0-35.0); MEAN CELL VOLUME 89.4 fl (80.0-105.0); MEAN CORPUSCULAR HGB CONC 34.6 g/dl (31.0-37.0); MEAN PLATELET VOLUME 10.3 fl (7.0-11.0); MONO # 0.6 (0.1-0.6); MONO % 8.6 % (1.0-6.0); RBC 4.62 10^6/uL (3.5-6.1); RED CELL DISTRIBUTION WIDTH 12.4 % (11.5-14.5); WHITE BLOOD COUNT 6.4 10^3/uL (4.5-11.0)
[2018-11-04 20:07] LABS: URINE BILIRUBIN NEGATIVE (NEGATIVE); URINE BLOOD NEGATIVE (NEGATIVE); URINE GLUCOSE (UA) NEGATIVE (NEGATIVE); URINE LEUKOCYTE ESTERASE TRACE Leu/uL (NEGATIVE); URINE PROTEIN NEGATIVE mg/dL (<30 mg/dL)
[2018-11-04 20:08] LABS: URINE APPEARANCE CLEAR (CLEAR); URINE COLOR YELLOW (YELLOW)
[2018-11-04] MEDS ORDERED: Sodium Chloride 0.9% 1,000 ML IV STA (20:11)
[2018-11-04 20:13] LABS: ALB/GLOB RATIO 1.3 (1.1-1.8); ALBUMIN 4.4 g/dL (3.0-4.8); ALT/SGPT 16 U/L (7-56); AST/SGOT 27 U/L (14-36); BLOOD UREA NITROGEN 13 mg/dL (7-21); CALCIUM 9.4 mg/dL (8.4-10.5); GFR NON-AFRICAN AMERICAN > 60
[2018-11-04 20:24] LABS: URINE BACTERIA TRACE /hpf; URINE EPITHELIAL CELLS 0 - 2 /hpf (0-5); URINE WBC 0 - 2 /hpf (0-6)
[2018-11-04 21:21] VITALS: BP 134/74; PULSE 75; RESP 17; TEMP 98.5; O2SAT 98
--- NOTE | 2018-11-05 09:42 | RAD ---
Date of service: 11/04/2018 HISTORY: coughing and congestion COMPARISON: 05/31/2018 FINDINGS: LUNGS: No active pulmonary disease. PLEURA: No significant pleural effusion identified, no pneumothorax apparent. CARDIOVASCULAR: No aortic atherosclerotic calcification present. Normal cardiac size. No pulmonary vascular congestion. OSSEOUS STRUCTURES: No significant abnormalities. VISUALIZED UPPER ABDOMEN: Normal. OTHER FINDINGS: None. IMPRESSION: No active disease.
== END 2018-11-04 21:21 | disposition home or self-care (01) ==
LOC: ED 18:47
DX: J32.9 Chronic sinusitis, unspecified (principal); E11.9 Type 2 diabetes mellitus without complications; F17.210 Nicotine dependence, cigarettes, uncomplicated
CPT/HCPCS: 71045; 80053; 81001; 83735; 85025; 87086; 87804; 96374; 99282; J2765; J7030

== ENCOUNTER 2019-01-05 17:22 | Emergency (ER) | payer OTHER ==
[2019-01-05 17:43] VITALS: BMI 28.1
[2019-01-05 17:44] VITALS: RESP 18; TEMP 97.1; O2SAT 96
--- NOTE | 2019-01-05 18:15 | ED PDOC ---
Arrival/HPI - General Chief Complaint: Back Pain Time Seen by Provider: 01/05/19 18:00 Historian: Patient - History of Present Illness Narrative History of Present Illness (Text): 01/05/19 18:11 58 year old post-menopausal female, whose past medical history includes, DM, gastritis, cholecystectomy 8 years ago and herniated discs, presents to the ED for bilateral lower back pain for the past 3 days. Patient reports associated f requent urination, but denies any fevers, chills, headache, dizziness, chest pain, shortness of breath, dyspnea on exertion, cough, abdominal pain, nausea, vomiting, diarrhea, neck pain, dysuria, hematuria, or any other complaint. Denies trauma. Denies focal weakness, midline pain, change in urinary or bowel habits. Denies numbness/tingling 01/06/19 12:02 Time/Duration: < week (3 days) Symptom Onset: Gradual Symptom Course: Unchanged Activities at Onset: Light Context: Home Past Medical History - Provider Review Nursing Documentation Reviewed: Yes - Infectious Disease Hx of Infectious Diseases: None - Tetanus Immunization Tetanus Immunization: Unknown - Reproductive Menopause: No - Past Medical History Past Medical History: No Previous - Cardiac Hx Cardiac Disorders: No - Pulmonary Hx Respiratory Disorders: Yes Hx Bronchitis: Yes - Neurological Hx Neurological Disorder: No - HEENT Hx HEENT Disorder: Yes Other/Comment: glasses - Renal Hx Renal Disorder: No - Endocrine/Metabolic Hx Endocrine Disorders: Yes Hx Diabetes Mellitus Type 2: Yes (NIDD) - Hematological/Oncological Hx Blood Disorders: No - Integumentary Hx Dermatological Disorder: No - Musculoskeletal/Rheumatological Hx Musculoskeletal Disorders: No Hx Falls: Yes - Gastrointestinal Hx Gastrointestinal Disorders: Yes Hx Gastritis: Yes - Genitourinary/Gynecological Hx Genitourinary Disorders: No - Psychiatric Hx Psychophysiologic Disorder: No Hx Substance Use: No - Surgical History Hx Cholecystectomy: Yes Hx Hysterectomy: Yes Hx Orthopedic Surgery: Yes (jaime foot surgery; left knee surgery) Other/Comment: HYSTERECTOMY 1997 - Anesthesia Hx Anesthesia: Yes Hx Anesthesia Reactions: No Hx Malignant Hyperthermia: No - Suicidal Assessment Feels Threatened In Home Enviroment: No Family/Social History - Physician Review Nursing Documentation Reviewed: Yes Family/Social History: Unknown Family HX Smoking Status: Light Smoker < 10 Cigarettes Daily Hx Alcohol Use: Yes Frequency of alcohol use: Socially Hx Substance Use: No Hx Substance Use Treatment: No Allergies/Home Meds Allergies/Adverse Reactions: Allergies No Known Allergies Allergy (Verified 10/05/18 20:55) per patient Home Medications: Home Meds Medication Instructions Recorded Confirmed Calcium Carbonate [Calcium] 600 mg PO BID 04/20/18 11/04/18 Ergocalciferol [Drisdol 50,000 1 cap PO Q7D 04/20/18 11/04/18 Intl Units Cap] Review of Systems - Review of Systems Constitutional: absent: Fatigue, Fevers Eyes: absent: Vision Changes ENT: absent: Hearing Changes, Epistaxis Respiratory: absent: SOB, Cough Cardiovascular: absent: Chest Pain Gastrointestinal: absent: Abdominal Pain, Nausea, Vomiting Genitourinary Female: Frequency. absent: Dysuria, Hematuria Musculoskeletal: Back Pain. absent: Neck Pain Skin: absent: Rash Neurological: absent: Headache, Dizziness Endocrine: absent: Diaphoresis Hemo/Lymphatic: absent: Adenopathy Psychiatric: absent: Anxiety, Depression Physical Exam Vital Signs Temp Pulse Resp BP Pulse Ox 01/05/19 17:23 97.1 F L 95 H 18 138/69 96 Temperature: Afebrile Blood Pressure: Normal Pulse: Regular Respiratory Rate: Normal Appearance: Positive for: Well-Appearing, Non-Toxic, Comfortable Mental Status: Positive for: Alert and Oriented X 3 - Systems Exam Head: Present: Atraumatic, Normocephalic Pupils: Present: PERRL Extroacular Muscles: Present: EOMI Conjunctiva: Present: Normal Mouth: Present: Moist Mucous Membranes Neck: Present: Normal Range of Motion Respiratory/Chest: Present: Clear to Auscultation, Good Air Exchange. No: Respiratory Distress, Accessory Muscle Use Cardiovascular: Present: Regular Rate and Rhythm, Normal S1, S2. No: Murmurs Abdomen: No: Tenderness, Distention, Peritoneal Signs Back: Present: Other (paraspinal muscle spasms bilaterally). No: Midline Tenderness Upper Extremity: Present: Normal Inspection. No: Cyanosis, Edema Lower Extremity: Present: Normal Inspection. No: Edema Neurological: Present: GCS=15, CN II-XII Intact, Speech Normal Skin: Present: Warm, Dry, Normal Color. No: Rashes Psychiatric: Present: Alert, Oriented x 3, Normal Insight, Normal Concentration Medical Decision Making ED Course and Treatment: 01/05/19 18:18 Impression: 58 year old female who presents to the ED for bilateral lower back pain for the past 3 days. Plan: -- Valium -- Toradol -- Urine Culture -- Urinalysis -- Reassess and disposition Prior Visits: Notes and results from previous visits were reviewed. Progress Notes: 01/05/19 19:[address] from 07/17/18 is normal. - Scribe Statement The provider has reviewed the documentation as recorded by the Lu Paiz Provider Scribe Attestation: All medical record entries made by the Tanyaibabdulaziz were at my direction and personally dictated by me. I have reviewed the chart and agree that the record accurately reflects my personal performance of the history, physical exam, medical decision making, and the department course for this patient. I have also personally directed, reviewed, and agree with the discharge instructions and disposition. Disposition/Present on Arrival - Present on Arrival Any Indicators Present on Arrival: No History of DVT/PE: No History of Uncontrolled Diabetes: No Urinary Catheter: No History of Decub. Ulcer: No History Surgical Site Infection Following: Orthopedic Procedures - Disposition Have Diagnosis and Disposition been Completed?: Yes Diagnosis: Muscle strain, Low back pain Disposition: HOME/ ROUTINE Disposition Time: 19:14 Patient Plan: Discharge Condition: GOOD Discharge Instructions (ExitCare): Muscle Strain, Low Back Pain (DC) Additional Instructions: Follow-up with PMD within 2 days. Flexeril for pain. Return with any worsening symptoms. Prescriptions: Cyclobenzaprine [Flexeril] 5 mg PO TID #20 tab Forms: [employer] (Nepalese)
[2019-01-05 18:58] LABS: PH,URINE 5.5 (4.7-8.0); URINE BILIRUBIN NEGATIVE (NEGATIVE); URINE BLOOD NEGATIVE (NEGATIVE); URINE GLUCOSE (UA) NEGATIVE (NEGATIVE); URINE LEUKOCYTE ESTERASE NEGATIVE Leu/uL (NEGATIVE); URINE PROTEIN NEGATIVE mg/dL (<30 mg/dL)
[2019-01-05 19:03] LABS: URINE APPEARANCE CLEAR (CLEAR); URINE COLOR YELLOW (YELLOW)
[2019-01-05 20:26] VITALS: BP 114/77; PULSE 87
== END 2019-01-05 20:51 | disposition home or self-care (01) ==
LOC: ED 17:22
DX: M54.5 Low back pain (principal); S39.012A Strain of muscle, fascia and tendon of lower back, initial encounter; X58.XXXA Exposure to other specified factors, initial encounter
CPT/HCPCS: 81003; 87086; 96372; 99283; J1885

== ENCOUNTER 2019-02-07 13:43 | Emergency (ER) | payer MEDICAID, OTHER ==
[2019-02-07 13:45] VITALS: BMI 28.1
[2019-02-07 13:51] VITALS: BP 134/79; TEMP 98.6
[2019-02-07] MEDS ORDERED: Naproxen 550 mg Tab PO STA (14:17)
[2019-02-07 14:45] VITALS: PULSE 100; RESP 19; O2SAT 99
--- NOTE | 2019-02-07 15:33 | ED PDOC ---
Arrival/HPI - General Chief Complaint: ENT Problem Time Seen by Provider: 02/07/19 13:54 Historian: Patient - History of Present Illness Narrative History of Present Illness (Text): 02/07/19 13:34 Desirae Vail is a 58 year old female, with a past medical history of gastritis, who presents to the emergency department complaining of nasal congestion and throat pain since the past couple of days. Patient also reports 1 episode of watery diarrhea. Patient informs of possible sick contact. Patient denies fevers, chills, headache, dizziness, chest pain, shortness of breath, cough, abdominal pain, nausea, vomiting, diarrhea, dysuria, hematuria, bloody / dark stools, recent travel or any other complaints. Time/Duration: < week (week) Symptom Onset: Gradual Activities at Onset: Light Context: Home Past Medical History - Provider Review Nursing Documentation Reviewed: Yes - Infectious Disease Hx of Infectious Diseases: None - Tetanus Immunization Tetanus Immunization: Unknown - Past Medical History Past Medical History: No Previous - Cardiac Hx Cardiac Disorders: No - Pulmonary Hx Respiratory Disorders: Yes Hx Bronchitis: Yes - Neurological Hx Neurological Disorder: No - HEENT Hx HEENT Disorder: Yes Other/Comment: glasses - Renal Hx Renal Disorder: No - Endocrine/Metabolic Hx Endocrine Disorders: Yes Hx Diabetes Mellitus Type 2: Yes (NIDD) - Hematological/Oncological Hx Blood Disorders: No - Integumentary Hx Dermatological Disorder: No - Musculoskeletal/Rheumatological Hx Musculoskeletal Disorders: No Hx Falls: Yes - Gastrointestinal Hx Gastrointestinal Disorders: Yes Hx Gastritis: Yes - Genitourinary/Gynecological Hx Genitourinary Disorders: No - Psychiatric Hx Psychophysiologic Disorder: No Hx Substance Use: No - Surgical History Hx Cholecystectomy: Yes Hx Hysterectomy: Yes Hx Orthopedic Surgery: Yes (jaime foot surgery; left knee surgery) Other/Comment: HYSTERECTOMY 1997 - Anesthesia Hx Anesthesia: Yes Hx Anesthesia Reactions: No Hx Malignant Hyperthermia: No - Suicidal Assessment Feels Threatened In Home Enviroment: No Family/Social History - Physician Review Nursing Documentation Reviewed: Yes Family/Social History: Unknown Family HX Smoking Status: Light Smoker < 10 Cigarettes Daily Hx Alcohol Use: Yes Hx Substance Use: No Hx Substance Use Treatment: No Allergies/Home Meds Allergies/Adverse Reactions: Allergies No Known Allergies Allergy (Verified 02/07/19 13:50) per patient Home Medications: Home Meds Medication Instructions Recorded Confirmed Calcium Carbonate [Calcium] 600 mg PO BID 04/20/18 11/04/18 Ergocalciferol [Drisdol 50,000 1 cap PO Q7D 04/20/18 11/04/18 Intl Units Cap] Review of Systems - Physician Review All systems were reviewed & negative as marked: Yes - Review of Systems Constitutional: absent: Fevers, Other (chills) ENT: Sore Throat, Sinus Congestion Respiratory: absent: SOB, Cough Gastrointestinal: Diarrhea. absent: Abdominal Pain, Nausea, Vomiting, Hematochezia, Other (melena) Genitourinary Female: absent: Dysuria, Hematuria Neurological: absent: Headache, Dizziness Physical Exam Vital Signs Reviewed: Yes Vital Signs Temp Pulse Resp BP Pulse Ox 02/07/19 14:42 100 H 19 99 02/07/19 13:50 98.6 F 118 H 18 134/79 96 Temperature: Afebrile Blood Pressure: Normal Pulse: Regular Respiratory Rate: Normal Appearance: Positive for: Well-Appearing, Non-Toxic, Comfortable Pain Distress: None Mental Status: Positive for: Alert and Oriented X 3 - Systems Exam Head: Present: Atraumatic, Normocephalic Pupils: Present: PERRL Extroacular Muscles: Present: EOMI Conjunctiva: Present: Normal Mouth: Present: Moist Mucous Membranes Neck: Present: Normal Range of Motion Respiratory/Chest: Present: Clear to Auscultation, Good Air Exchange. No: Respiratory Distress, Accessory Muscle Use, Wheezes, Rales, Rhonchi Cardiovascular: Present: Regular Rate and Rhythm, Normal S1, S2. No: Murmurs, Rub, Gallop Abdomen: Present: Normal Bowel Sounds. No: Tenderness, Distention, Peritoneal Signs, Rebound, Guarding Back: Present: Normal Inspection Upper Extremity: Present: Normal Inspection. No: Cyanosis, Edema Lower Extremity: Present: Normal Inspection. No: Edema Neurological: Present: GCS=15, CN II-XII Intact, Speech Normal Skin: Present: Warm, Dry, Normal Color. No: Rashes Psychiatric: Present: Alert, Oriented x 3, Normal Insight, Normal Concentration Medical Decision Making ED Course and Treatment: 02/07/19 13:54 Impression: Patient is a 58 year old female, with a past medical history of gastritis, who presents to the emergency department complaining of nasal congestion and sore throat since a couple days. Plan: -- Naproxen -- Reassess and disposition Prior Visits: Notes and results from previous visits were reviewed. Progress Notes: - Medication Orders Current Medication Orders: Discontinued Medications Naproxen (Anaprox Ds) 550 mg PO STAT STA Stop: 02/07/19 14:18 Last Admin: 02/07/19 14:26 Dose: 550 mg - Scribe Statement The provider has reviewed the documentation as recorded by the Scribe George King All medical record entries made by the Scribe were at my direction and personally dictated by me. I have reviewed the chart and agree that the record accurately reflects my personal performance of the history, physical exam, medical decision making, and the department course for this patient. I have also personally directed, reviewed, and agree with the discharge instructions and disposition. Disposition/Present on Arrival - Present on Arrival Any Indicators Present on Arrival: No History of DVT/PE: No History of Uncontrolled Diabetes: No Urinary Catheter: No History of Decub. Ulcer: No History Surgical Site Infection Following: Orthopedic Procedures - Disposition Have Diagnosis and Disposition been Completed?: Yes Diagnosis: Sinusitis Disposition: HOME/ ROUTINE Disposition Time: 14:15 Condition: GOOD Discharge Instructions (ExitCare): Sinusitis, Adult (DC) Additional Instructions: DESIRAE VAIL, thank you for letting us take care of you today. Your provider was George Lui DO and you were treated for NOSE CONGESTION. The emergency medical care you received today was directed at your acute symptoms. If you were prescribed any medication, please fill it and take as directed. It may take several days for your symptoms to resolve. Return to the Emergency Department if your symptoms worsen, do not improve, or if you have any other problems. Please contact your doctor or call one of the physicians/clinics you have been referred to that are listed on the Patient Visit Information form that is included in your discharge packet. Bring any paperwork you were given at discharge with you along with any medications you are taking to your follow up visit. Our treatment cannot replace ongoing medical care by a primary care provider outside of the emergency department. Thank you for allowing the [facility] team to be part of your care today. Follow up with your primary care at the end of the week for re-evaluation and further management. Prescriptions: Azithromycin [Zithromax] 250 mg PO DAILY #6 tab Loratadine/Pseudoephedrine [Claritin-D 24 Hour Tablet] 1 each PO DAILY #7 tab.er.24h Naproxen [Naprosyn] 500 mg PO Q12 PRN #15 tablet PRN Reason: Pain, Moderate (4-7) Referrals: [facility] [Outside] - Follow up with primary Maci Nelson MD [Medical Doctor] - Follow up with primary Forms: [employer] (Hebrew)
== END 2019-02-07 14:45 | disposition home or self-care (01) ==
LOC: ED 13:43
DX: J32.9 Chronic sinusitis, unspecified (principal); F17.210 Nicotine dependence, cigarettes, uncomplicated

== ENCOUNTER 2019-02-15 20:30 | Emergency (ER) | payer OTHER ==
[2019-02-15 20:39] VITALS: BP 113/79; PULSE 105; RESP 18; TEMP 98.7; O2SAT 96; BMI 29.0
--- NOTE | 2019-02-15 21:17 | ED PDOC ---
Arrival/HPI - General Historian: Patient - History of Present Illness Narrative History of Present Illness (Text): 02/15/19 21:13 Pt is a 58 yo female with a PMH of tobacco use, Diabetes and IBS who presented to the ED complaining of right jaw pain which started about 2 weeks ago. Pt states the pain is 7/10 achy and worse when she chews, states this has never happened before. Reports occasional headaches associated with the pain. States her jaw has been intermittently popping on the right side. Denies fever, bleeding gums, or toothache. Time/Duration: > week Symptom Onset: Gradual Symptom Course: Unchanged Quality: Aching Severity Level: 7 Activities at Onset: Eating Context: Sitting <Bharath Bowles - Last Filed: 02/15/19 23:21> <Reyes Mark - Last Filed: 02/15/19 23:28> - General Chief Complaint: Dental Pain Past Medical History - Infectious Disease Hx of Infectious Diseases: None - Tetanus Immunization Tetanus Immunization: Unknown - Past Medical History Past Medical History: No Previous - Cardiac Hx Cardiac Disorders: No - Pulmonary Hx Respiratory Disorders: Yes Hx Bronchitis: Yes - Neurological Hx Neurological Disorder: No - HEENT Hx HEENT Disorder: Yes Other/Comment: glasses - Renal Hx Renal Disorder: No - Endocrine/Metabolic Hx Endocrine Disorders: Yes Hx Diabetes Mellitus Type 2: Yes (NIDD) - Hematological/Oncological Hx Blood Disorders: No - Integumentary Hx Dermatological Disorder: No - Musculoskeletal/Rheumatological Hx Musculoskeletal Disorders: No Hx Falls: Yes - Gastrointestinal Hx Gastrointestinal Disorders: Yes Hx Gastritis: Yes - Genitourinary/Gynecological Hx Genitourinary Disorders: No - Psychiatric Hx Psychophysiologic Disorder: No Hx Substance Use: No - Surgical History Hx Cholecystectomy: Yes Hx Hysterectomy: Yes Hx Orthopedic Surgery: Yes (jaime foot surgery; left knee surgery) Other/Comment: HYSTERECTOMY 1998 - Anesthesia Hx Anesthesia: Yes Hx Anesthesia Reactions: No Hx Malignant Hyperthermia: No - Suicidal Assessment Feels Threatened In Home Enviroment: No <Bharath Bowles - Last Filed: 02/15/19 23:21> Family/Social History Family/Social History: Diabetes, Hypertension, CAD/VA, Neoplasm/Cancer Smoking Status: Light Smoker < 10 Cigarettes Daily Hx Alcohol Use: Yes Frequency of alcohol use: Socially Hx Substance Use: No Hx Substance Use Treatment: No <Bharath Bowles - Last Filed: 02/15/19 23:21> Allergies/Home Meds <Bahrath Bowles - Last Filed: 02/15/19 23:21> <DeedeeReyes - Last Filed: 02/15/19 23:28> Allergies/Adverse Reactions: Allergies No Known Allergies Allergy (Verified 02/15/19 20:38) per patient Home Medications: Home Meds Medication Instructions Recorded Confirmed Calcium Carbonate [Calcium] 600 mg PO BID 04/20/18 11/04/18 Ergocalciferol [Drisdol 50,000 1 cap PO Q7D 04/20/18 11/04/18 Intl Units Cap] Review of Systems - Review of Systems Constitutional: Normal Eyes: Normal ENT: TMJ Pain Respiratory: Normal Cardiovascular: Normal Gastrointestinal: Normal Musculoskeletal: Normal Skin: Normal Neurological: Normal Endocrine: Normal Hemo/Lymphatic: Normal Psychiatric: Normal <Bharath Bowles - Last Filed: 02/15/19 23:21> Physical Exam Vital Signs Reviewed: Yes Vital Signs Temp Pulse Resp BP Pulse Ox 02/15/19 20:39 98.7 F 105 H 18 113/79 96 Temperature: Afebrile Blood Pressure: Normal Pulse: Regular Respiratory Rate: Normal Appearance: Positive for: Well-Appearing Mental Status: Positive for: Alert and Oriented X 3 - Systems Exam Head: Present: Atraumatic, Normocephalic Pupils: Present: PERRL Extroacular Muscles: Present: EOMI Conjunctiva: Present: Normal Mouth: Present: Trismus, Other (right sided jaw pain, worse with chewing, TMJ cracks and crunches during exam ) Neck: Present: Normal Range of Motion Cardiovascular: Present: Regular Rate and Rhythm, Normal S1, S2 Abdomen: Present: Normal Bowel Sounds. No: Tenderness, Distention Upper Extremity: Present: Normal Inspection Lower Extremity: Present: Normal Inspection Neurological: Present: GCS=15, CN II-XII Intact, Speech Normal Skin: Present: Warm, Dry, Normal Color Psychiatric: Present: Alert, Oriented x 3 <Bharath Bowles - Last Filed: 02/15/19 23:21> Vital Signs Temp Pulse Resp BP Pulse Ox 02/15/19 20:39 98.7 F 105 H 18 113/79 96 <Reyes Mark - Last Filed: 02/15/19 23:28> Medical Decision Making ED Course and Treatment: 02/15/19 21:20 likely TMJ pain Toradol for pain control CBC CMP EKG Troponin, rule out cardiac involvement 02/15/19 21:28 EKG tachy, regular rhythm, no signs of ST or T wave abnormalities 02/15/19 23:20 trop negative, EKG shows no signs of [facility] pt leaving AMA have pt follow up with the [facility]/ dentist for her TMJ Pt seen, examined, assessment and plan discussed with Dr Deedee Bowles PGY1 - EKG Interpretation Interpreted by ED Physician: Yes Type: 12 lead EKG - Medication Orders Current Medication Orders: Ketorolac Tromethamine (Toradol) 60 mg IM STAT STA Stop: 02/15/19 21:12 <Bharath Bowles - Last Filed: 02/15/19 23:21> ED Course and Treatment: Impression: Pt seen and evaluated with medical transcription editor. Aware and agree with HPI, clinical findings, plan, and management. Pt, whose past medical history includes diabetes and IBS, presented for right jaw pain. Plan: -- EKG -- Labs, troponin -- Toradol -- Reassess and disposition 02/15/19 23:20 Leaving Against Medical Advice (AMA): The patient is choosing to leave against medical advice. I have personally explained to the patient that choosing to do so may result in permanent bodily harm, disability, or . I have discussed at great length that without further evaluation and monitoring there may be unforeseen circumstances and/or deterioration causing permanent bodily harm or as a result of their choice. The patient is alert, oriented, and shows the mental capacity to make clear decisions regarding the patients health care at this time. The patient continues to wish to leave against medical advice. In light of the patients decision to leave against medical advice, patient is aware of the importance to following up as instructed. The patient has been advised that they should return to the emergency room immediately if they change their mind at any time, or if their condition begins to change or worsen in any way. - Medication Orders Current Medication Orders: Discontinued Medications Ketorolac Tromethamine (Toradol) 60 mg IM STAT STA Stop: 02/15/19 21:12 <Reyes Mark - Last Filed: 02/15/19 23:28> Disposition/Present on Arrival - Present on Arrival Any Indicators Present on Arrival: No History of DVT/PE: No History of Uncontrolled Diabetes: No Urinary Catheter: No History of Decub. Ulcer: No History Surgical Site Infection Following: Orthopedic Procedures - Disposition Have Diagnosis and Disposition been Completed?: Yes Disposition Time: 23:22 <Bharath Bowles - Last Filed: 02/15/19 23:21> <Reyes Mark - Last Filed: 02/15/19 23:28> - Disposition Diagnosis: TMJ (temporomandibular joint syndrome) Disposition: AGAINST MEDICAL ADVICE Patient Problems: Current Active Problems Problem Status Onset TMJ (temporomandibular joint syndrome) Acute Condition: GOOD Discharge Instructions (ExitCare): Temporomandibular Joint (TMJ) Disorders (DC) Referrals: Maci Nelson MD [Primary Care Provider] - Follow up with primary Forms: [employer] (Honduran)
[2019-02-15 21:53] LABS: BASO # 0.01 K/mm3 (0.0-2.0); BASO % 0.1 % (0.0-3.0); EOS # 0.1 (0.0-0.7); EOS % 1.3 % (1.5-5.0); HEMOGLOBIN 15.3 g/dL (12.0-16.0); LYMPH # 2.3 (1.2-3.4); LYMPH % 32.8 % (22.0-35.0); MEAN CELL VOLUME 89.6 fl (80.0-105.0); MEAN CORPUSCULAR HEMOGLOBIN 30.7 pg (25.0-35.0); MEAN CORPUSCULAR HGB CONC 34.3 g/dl (31.0-37.0); MEAN PLATELET VOLUME 10.4 fl (7.0-11.0); MONO # 0.4 (0.1-0.6); MONO % 6.3 % (1.0-6.0); RBC 4.98 10^6/uL (3.5-6.1)
[2019-02-15 22:15] LABS: ALB/GLOB RATIO 1.2 (1.1-1.8); ALBUMIN 4.5 g/dL (3.0-4.8); ALT/SGPT 34 U/L (7-56); AST/SGOT 32 U/L (14-36); BLOOD UREA NITROGEN 17 mg/dL (7-21); CALCIUM 9.9 mg/dL (8.4-10.5); GFR NON-AFRICAN AMERICAN > 60
[2019-02-15 22:27] LABS: TROPONIN I < 0.01 ng/mL
--- NOTE | 2019-02-16 09:01 | CARD ---
APPROVED REPORT Date of service: 02/15/2019 EKG Measurement Heart [id number] <Conclusion> Sinus tachycardia Otherwise normal ECG
== END 2019-02-15 23:31 | disposition left against medical advice (07) ==
LOC: ED 20:30
DX: M26.621 Arthralgia of right temporomandibular joint (principal); E11.9 Type 2 diabetes mellitus without complications; K58.9 Irritable bowel syndrome, unspecified; F17.210 Nicotine dependence, cigarettes, uncomplicated; Z83.3 Family history of diabetes mellitus; Z82.49 Family history of ischemic heart disease and other diseases of the circulatory system
CPT/HCPCS: 80053; 84484; 85025; 93005; 96372; 99282; J1885